=== PATIENT | male | born 1935 | race Caucasian/White ===

== ENCOUNTER → 2016-12-31 | Outpatient (CLI) | payer MEDICARE | END | disposition home or self-care (01) | LOC: CFH 10:27 | PROVIDERS: ATTEND Internal Medicine Cardiovascular Disease | DX: R06.02 Shortness of breath (principal); R07.9 Chest pain, unspecified; I10 Essential (primary) hypertension | CPT/HCPCS: 78452; 93017; 93306; A9502; J2785 ==

== ENCOUNTER 2017-01-21 10:18 | Emergency (ER) | payer MEDICARE ==
[~2017-01-21] VITALS: Ht 185.4 cm; Wt 91.7 kg
[2017-01-21] MEDS ORDERED: WATER PILL (11:13)
[2017-01-21] MEDS ORDERED: AMLO10TA2 PO (11:13)
[2017-01-21 11:24] VITALS: BP 133/74
[2017-01-21] MEDS ORDERED: SODIUM CHLORIDE FLUSH 10ML SYR IVF ONE (11:30)
[2017-01-21 12:01] LABS: ASPARTATE AMINO TRANSFERASE 27 U/L (15-37); BLOOD UREA NITROGEN 34 mg/dL (7-18); C-REACTIVE PROTEIN, QUANT 0.65 mg/dL (0.02-0.49)
[2017-01-21] MEDS ORDERED: GADOBUTROL 10 MMOL/10 ML PFS ONE (12:32)
== END 2017-01-21 14:50 | disposition other institution (70) ==
LOC: ED 13:39 → EDIP 14:00 → UNDOADMIN 14:00 → UNDODISIN 14:17 → ED 14:50
DX: S84.92XA Injury of unspecified nerve at lower leg level, left leg, initial encounter (principal); R33.9 Retention of urine, unspecified; I10 Essential (primary) hypertension; M19.90 Unspecified osteoarthritis, unspecified site; Z88.0 Allergy status to penicillin; X58.XXXA Exposure to other specified factors, initial encounter; Y93.89 Activity, other specified; Y99.8 Other external cause status; Y92.89 Other specified places as the place of occurrence of the external cause
CPT/HCPCS: 36415; 51702; 72158; 80053; 85025; 85651; 86140; 99285; A9585

== ENCOUNTER → 2017-07-15 | Outpatient (CLI) | payer MEDICARE ==
[~2017-07-15] MED LIST: AMLO10TA2 PO; WATER PILL
== END | disposition home or self-care (01) ==
LOC: CFH 14:26
PROVIDERS: ATTEND Family Medicine
DX: R22.42 Localized swelling, mass and lump, left lower limb (principal)

== ENCOUNTER → 2017-09-16 | Outpatient (CLI) | payer MEDICARE | LOC: CFH 09-14 09:41 | PROVIDERS: ATTEND Family Medicine | DX: I71.4 Abdominal aortic aneurysm, without rupture (principal); Z87.891 Personal history of nicotine dependence | CPT/HCPCS: 93978 ==

== ENCOUNTER 2017-09-23 07:46 | Day surgery (SDC) | payer MEDICARE ==
[~2017-09-23] VITALS: Ht 182.9 cm; Wt 87.2 kg
[2017-09-23 08:25] VITALS: BP 144/81
[2017-09-23] MEDS ORDERED: ALBU90AE INH (08:28)
[2017-09-23] MEDS ORDERED: MULT-257 PO (08:30)
[2017-09-23] MEDS ORDERED: VITA200C7 PO (08:30)
[2017-09-23] MEDS ORDERED: CA C1TAB60 PO (08:30)
[2017-09-23 08:49] LABS: BASOPHILS # (AUTO) 0.06 x10^3/uL (0-0.1); BASOPHILS % (AUTO) 1 % (0-1); EOSINOPHILS # (AUTO) 0.31 x10^3/uL (0-0.4); EOSINOPHILS % (AUTO) 6 % (1-7); LYMPHOCYTES # (AUTO) 0.28 x10^3/uL (1-3.4); LYMPHOCYTES % (AUTO) 6 % (22-44); MD NO; MEAN CORPUSCULAR HEMOGLOBIN 27.2 pg (27.5-34.5); MEAN CORPUSCULAR HGB CONC 33.9 g/dL (33.2-36.2); MEAN CORPUSCULAR VOLUME 80.2 fL (81-97); MEAN PLATELET VOLUME 8.4 fL (7.4-10.4); MONOCYTES % (AUTO) 8 % (2-9); NEUTROPHILS # (AUTO) 3.78 x10^3/uL (1.8-6.8); NEUTROPHILS % (AUTO) 78 % (42-75); PLATELET COUNT 170 x10^3/uL (130-400); RED BLOOD COUNT 4.48 x10^6/uL (4.38-5.82); RED CELL DISTRIBUTION WIDTH 16.8 % (9.4-14.8)
[2017-09-23 08:58] LABS: ANION GAP 8 mmol/L (5-15); CALCIUM 9.1 mg/dL (8.5-10.1); CHLORIDE 110 mmol/L (98-107); CREATININE 1.39 mg/dL (0.7-1.3)
[2017-09-23] MEDS ORDERED: LIDOCAINE 2%, 20ML ONE (09:05)
[2017-09-23] MEDS ORDERED: FENTANYL PF 100 MCG/2ML ONE (09:25)
[2017-09-23] MEDS ORDERED: PROTAMINE SULFATE 10 MG/ML, 25ML ONE (09:26)
[2017-09-23] MEDS ORDERED: HEPARIN 1,000 UNITS/ML, 10ML ONE (09:26)
[2017-09-23] MEDS ORDERED: NALOXONE 1 MG/ML, 2ML ONE (09:26)
[2017-09-23] MEDS ORDERED: FLUMAZENIL 0.1 MG/1 ML, 5ML ONE (09:26)
[2017-09-23] MEDS ORDERED: NITROGLYCERIN 5 MG/ML, 10ML ONE (09:26)
[2017-09-23] MEDS ORDERED: MIDAZOLAM 1 MG/ML, 5ML ONE (09:26)
[2017-09-23] MEDS ORDERED: CLOPIDOGREL 75 MG TABLET ONE (10:27)
== END 2017-09-23 15:20 | disposition home or self-care (01) ==
LOC: OUT 07:46
PROVIDERS: ATTEND Surgery Vascular Surgery
DX: I70.212 Atherosclerosis of native arteries of extremities with intermittent claudication, left leg (principal)
CPT/HCPCS: 36415; 37226; 75625; 75630; 75716; 80048; 85025; 99156; 99157; J1644; J2250; J2720; J3010; J3490; C1751; C1769; C1876; C1894; J2310

== ENCOUNTER 2017-11-25 11:03 | Day surgery (SDC) | payer MEDICARE ==
[2017-11-24 11:54] LABS: BASOPHILS # (AUTO) 0.02 x10^3/uL (0-0.1); BASOPHILS % (AUTO) 0 % (0-1); EOSINOPHILS # (AUTO) 0.15 x10^3/uL (0-0.4); EOSINOPHILS % (AUTO) 3 % (1-7); LYMPHOCYTES # (AUTO) 0.35 x10^3/uL (1-3.4); LYMPHOCYTES % (AUTO) 6 % (22-44); MD NO; MEAN CORPUSCULAR HEMOGLOBIN 27.1 pg (27.5-34.5); MEAN CORPUSCULAR HGB CONC 33.4 g/dL (33.2-36.2); MEAN CORPUSCULAR VOLUME 81.2 fL (81-97); MEAN PLATELET VOLUME 8.5 fL (7.4-10.4); MONOCYTES # (AUTO) 0.47 x10^3/uL (0.2-0.8); MONOCYTES % (AUTO) 8 % (2-9); NEUTROPHILS # (AUTO) 4.92 x10^3/uL (1.8-6.8); NEUTROPHILS % (AUTO) 83 % (42-75); PLATELET COUNT 196 x10^3/uL (130-400); RED BLOOD COUNT 4.68 x10^6/uL (4.38-5.82); RED CELL DISTRIBUTION WIDTH 15.5 % (9.4-14.8)
[2017-11-24 12:07] LABS: CHLORIDE 107 mmol/L (98-107)
[2017-11-24 12:17] LABS: ANION GAP 7 mmol/L (5-15); CALCIUM 10.6 mg/dL (8.5-10.1); CREATININE 1.77 mg/dL (0.7-1.3)
[~2017-11-25] VITALS: Ht 185.4 cm; Wt 85.0 kg
[~2017-11-25 11:03] MED LIST changes: +ALBU90AE INH; +AMLO5TAB2 PO; +ATOR40TA PO; +CA C1TAB60 PO; +METO25TA91 PO; +MULT-257 PO; +VITA200C7 PO
[2017-11-25] MEDS ORDERED: SODIUM CHLORIDE 0.9% 1,000 ML IV ONE (11:10)
[2017-11-25] MEDS ORDERED: TICAGRELOR 90 MG TABLET ONE (11:36)
[2017-11-25] MEDS ORDERED: FENTANYL PF 100 MCG/2ML ONE (11:36)
[2017-11-25] MEDS ORDERED: VERAPAMIL 2.5 MG/ML, 2ML ONE (11:36)
[2017-11-25] MEDS ORDERED: HEPARIN 1,000 UNITS/ML, 10ML ONE (11:37)
[2017-11-25] MEDS ORDERED: LIDOCAINE 2%, 20ML ONE (11:37)
[2017-11-25] MEDS ORDERED: MIDAZOLAM 1 MG/ML, 2ML ONE (11:37)
[2017-11-25] MEDS ORDERED: BIVALIRUDIN 250 MG ONE (11:37)
[2017-11-25] MEDS ORDERED: SODIUM CHLORIDE 0.9% 1,000 ML IV SCH (13:09)
== END 2017-11-25 15:43 ==
LOC: CACL 11:03
PROVIDERS: ATTEND Internal Medicine Cardiovascular Disease
DX: I25.10 Atherosclerotic heart disease of native coronary artery without angina pectoris (principal); I10 Essential (primary) hypertension; F17.200 Nicotine dependence, unspecified, uncomplicated; I73.9 Peripheral vascular disease, unspecified; Z88.0 Allergy status to penicillin
CPT/HCPCS: 36415; 80048; 83880; 85025; 92978; 93454; 99156; C1753; C1769; C1887; C1894; J0583; J1644; J3490; Q9967; J2250; J3010

== ENCOUNTER 2017-11-26 09:41 | Emergency (ER) | payer MEDICARE ==
[~2017-11-26] VITALS: Ht 182.9 cm; Wt 85.0 kg
[2017-11-26 09:54] VITALS: BP 128/76
[2017-11-26] MEDS ORDERED: ASPIRIN 81 MG TABLET CHEW PO ONE (10:30)
[2017-11-26 10:57] LABS: BASOPHILS # (AUTO) 0.02 x10^3/uL (0-0.1); BASOPHILS % (AUTO) 0 % (0-1); EOSINOPHILS # (AUTO) 0.21 x10^3/uL (0-0.4); EOSINOPHILS % (AUTO) 4 % (1-7); LYMPHOCYTES % (AUTO) 7 % (22-44); MD NO; MEAN CORPUSCULAR HEMOGLOBIN 26.5 pg (27.5-34.5); MEAN CORPUSCULAR HGB CONC 32.7 g/dL (33.2-36.2); MEAN CORPUSCULAR VOLUME 81.2 fL (81-97); MEAN PLATELET VOLUME 8.9 fL (7.4-10.4); MONOCYTES % (AUTO) 8 % (2-9); NEUTROPHILS # (AUTO) 4.77 x10^3/uL (1.8-6.8); NEUTROPHILS % (AUTO) 81 % (42-75); PLATELET COUNT 192 x10^3/uL (130-400); RED BLOOD COUNT 4.63 x10^6/uL (4.38-5.82); RED CELL DISTRIBUTION WIDTH 15.6 % (9.4-14.8)
[2017-11-26 11:08] LABS: ALBUMIN 3.8 g/dL (3.4-5.0); ANION GAP 8 mmol/L (5-15); CALCIUM 9.4 mg/dL (8.5-10.1); CHLORIDE 109 mmol/L (98-107); CREATININE 1.77 mg/dL (0.7-1.3)
[2017-11-26 11:15] LABS: TROPONIN I 0.109 ng/mL (0.000-0.045)
[2017-11-26] MEDS ORDERED: ASPIRIN 81 MG TABLET CHEW ONE (11:20)
[2017-11-26] MEDS ORDERED: SODIUM CHLORIDE FLUSH 10ML SYR IVF ONE (11:30)
[2017-11-26] MEDS ORDERED: ALBUTEROL SULFATE INH SCH (12:00)
[2017-11-26 12:22] LABS: ALBUMIN 3.8 g/dL (3.4-5.0); BILIRUBIN, DIRECT 0.1 mg/dL (0.1-0.2)
[2017-11-26 12:32] LABS: BILIRUBIN,INDIRECT 0.3 mg/dL (0.0-2.0); BILIRUBIN,TOTAL 0.4 mg/dL (0.2-1.0); THYROID STIMULATING HORMONE 2.81 mIU/L (0.358-3.740); TOTAL PROTEIN 7.6 g/dL (6.4-8.2)
[2017-11-26] MEDS ORDERED: ATORVASTATIN 40 MG TABLET PO SCH (21:00)
[2017-11-26] MEDS ORDERED: METOPROLOL SUCCINATE 25 MG TAB.ER.24H PO SCH (21:00)
[2017-11-26] MEDS ORDERED: AMLODIPINE 5 MG TABLET PO SCH (21:00)
[2017-11-27] MEDS ORDERED: ASPIRIN 325 MG TABLET PO SCH (06:00)
[2017-11-27] MEDS ORDERED: MULTIVITAMIN 1 TABLET PO SCH (09:00)
== END 2017-11-26 13:26 | disposition left against medical advice (07) ==
LOC: ED 11:33 → EDIP 11:34 → UNDOADMIN 11:34 → ED 11:41
DX: R06.00 Dyspnea, unspecified (principal); J90 Pleural effusion, not elsewhere classified; I10 Essential (primary) hypertension; M19.90 Unspecified osteoarthritis, unspecified site
CPT/HCPCS: 36415; 71046; 80048; 80076; 82040; 83880; 84443; 84484; 85025; 93005; 99285

== ENCOUNTER → 2017-12-22 | Outpatient (CLI) | payer MEDICARE | LOC: CFH 12:07 | PROVIDERS: ATTEND Internal Medicine | DX: J90 Pleural effusion, not elsewhere classified (principal); J98.11 Atelectasis | CPT/HCPCS: 71250 ==

== ENCOUNTER 2017-12-23 11:46 | Observation (INO) | payer MEDICARE ==
[~2017-12-23] VITALS: Ht 182.9 cm; Wt 83.1 kg
[2017-12-23] MEDS ORDERED: SODIUM CHLORIDE 0.9% 1,000 ML IV ONE (12:16)
[2017-12-23 12:34] VITALS: BP 123/71
[2017-12-23 12:57] LABS: BASOPHILS # (AUTO) 0.03 x10^3/uL (0-0.1); BASOPHILS % (AUTO) 1 % (0-1); EOSINOPHILS # (AUTO) 0.16 x10^3/uL (0-0.4); EOSINOPHILS % (AUTO) 3 % (1-7); LYMPHOCYTES # (AUTO) 0.37 x10^3/uL (1-3.4); LYMPHOCYTES % (AUTO) 8 % (22-44); MD NO; MEAN CORPUSCULAR HEMOGLOBIN 26.6 pg (27.5-34.5); MEAN CORPUSCULAR HGB CONC 33.1 g/dL (33.2-36.2); MEAN CORPUSCULAR VOLUME 80.4 fL (81-97); MEAN PLATELET VOLUME 9.1 fL (7.4-10.4); MONOCYTES # (AUTO) 0.53 x10^3/uL (0.2-0.8); MONOCYTES % (AUTO) 11 % (2-9); NEUTROPHILS # (AUTO) 3.82 x10^3/uL (1.8-6.8); NEUTROPHILS % (AUTO) 78 % (42-75); PLATELET COUNT 171 x10^3/uL (130-400); RED BLOOD COUNT 4.18 x10^6/uL (4.38-5.82); RED CELL DISTRIBUTION WIDTH 16.1 % (9.4-14.8)
[2017-12-23 13:07] LABS: ANION GAP 11 mmol/L (5-15); CALCIUM 9.6 mg/dL (8.5-10.1); CHLORIDE 108 mmol/L (98-107); CREATININE 1.61 mg/dL (0.7-1.3)
[2017-12-23] MEDS ORDERED: VERAPAMIL 2.5 MG/ML, 2ML ONE (14:16)
[2017-12-23] MEDS ORDERED: TICAGRELOR 90 MG TABLET ONE (14:16)
[2017-12-23] MEDS ORDERED: LIDOCAINE 2%, 20ML ONE (14:16)
[2017-12-23] MEDS ORDERED: HEPARIN 1,000 UNITS/ML, 10ML ONE (14:16)
[2017-12-23] MEDS ORDERED: FENTANYL PF 100 MCG/2ML ONE (14:16)
[2017-12-23] MEDS ORDERED: BIVALIRUDIN 250 MG ONE (14:16)
[2017-12-23] MEDS ORDERED: MIDAZOLAM 1 MG/ML, 5ML ONE (14:16)
[2017-12-23 16:00] VITALS: BP 139/83
[2017-12-23] MEDS ORDERED: ONDANSETRON 2MG/ML, 2ML IVPush PRN (16:00)
[2017-12-23] MEDS ORDERED: BISACODYL 5 MG EC TABLET PO PRN (16:00)
[2017-12-23] MEDS ORDERED: ACETAMINOPHEN 325 MG TABLET PO PRN (16:00)
[2017-12-23] MEDS: SODIUM CHLORIDE 0.9% 1,000 ML IV SCH ×2 (16:15→21:56)
[2017-12-23 18:46] VITALS: BP 131/69
[2017-12-23] MEDS ORDERED: ZOLPIDEM 5MG TABLET PO PRN (21:00)
[2017-12-23] MEDS ORDERED: ATORVASTATIN 40 MG TABLET PO SCH (21:00)
[2017-12-23] MEDS: TICAGRELOR 90 MG TABLET PO SCH (21:56)
[2017-12-23] MEDS: AMLODIPINE 5 MG TABLET PO SCH (21:58)
[2017-12-23] MEDS: METOPROLOL SUCCINATE 25 MG TAB.ER.24H PO SCH (21:58)
[2017-12-24 01:48] VITALS: BP 113/53
[2017-12-24 05:23] LABS: ALBUMIN 3.4 g/dL (3.4-5.0); ANION GAP 8 mmol/L (5-15); CHLORIDE 110 mmol/L (98-107); CREATININE 1.41 mg/dL (0.7-1.3)
[2017-12-24 06:44] VITALS: BP 143/80
[2017-12-24] MEDS: SODIUM CHLORIDE 0.9% 1,000 ML IV SCH (07:07)
[2017-12-24] MEDS: TICAGRELOR 90 MG TABLET PO SCH (07:28)
[2017-12-24] MEDS: AMLODIPINE 5 MG TABLET PO SCH (07:28)
[2017-12-24] MEDS: METOPROLOL SUCCINATE 25 MG TAB.ER.24H PO SCH (07:28)
[2017-12-24] MEDS ORDERED: ASPI-621 PO (08:00)
[2017-12-24] MEDS ORDERED: TICA90TA PO (08:00)
[2017-12-24] MEDS ORDERED: MULTIVITAMIN 1 TABLET PO SCH (09:00)
[2017-12-24] MEDS ORDERED: ASPIRIN 81 MG TABLET EC PO SCH (09:00)
== END 2017-12-24 15:50 | disposition home or self-care (01) ==
LOC: CACL 11:46 → 5SO 15:59 → CACL 15:59 → 5SO 16:01
PROVIDERS: ADMIT Internal Medicine Cardiovascular Disease; ATTEND Internal Medicine Cardiovascular Disease
DX: I25.10 Atherosclerotic heart disease of native coronary artery without angina pectoris (principal); I11.0 Hypertensive heart disease with heart failure; I50.33 Acute on chronic diastolic (congestive) heart failure; I35.0 Nonrheumatic aortic (valve) stenosis; R06.02 Shortness of breath; F17.200 Nicotine dependence, unspecified, uncomplicated
CPT/HCPCS: 36415; 80048; 82040; 85025; 92978; 93454; 99156; 99157; C1725; C1753; C1769; C1874; C1887; C1894; C9600; G0378; J0583; J2250; J3010; J3490; J7030; Q9967; J1644

== ENCOUNTER → 2018-02-08 | Outpatient (CLI) | payer MEDICARE ==
[~2018-02-08] MED LIST changes: +ASPI-621 PO; +FURO20TA3 PO; +LIDOCAINE-MPF 1%, 5ML ONE; +POTA10TA6 PO; +TICA90TA PO
== END ==
LOC: RAD 10:14
PROVIDERS: ATTEND Internal Medicine Hematology & Oncology
DX: J90 Pleural effusion, not elsewhere classified (principal); Z87.39 Personal history of other diseases of the musculoskeletal system and connective tissue; I10 Essential (primary) hypertension; Z98.890 Other specified postprocedural states; Z88.0 Allergy status to penicillin; Z72.89 Other problems related to lifestyle; Z87.891 Personal history of nicotine dependence
CPT/HCPCS: 32555; 82945; 83615; 84157; 88112; 89051

== ENCOUNTER 2018-02-10 06:00 | Day surgery (SDC) | payer MEDICARE ==
[~2018-02-10] VITALS: Ht 182.9 cm; Wt 73.0 kg
[~2018-02-10 06:00] MED LIST changes: -LIDOCAINE-MPF 1%, 5ML ONE
[2018-02-10] MEDS ORDERED: LACTATED RINGERS 1,000 ML IV SCH (06:33)
[2018-02-10] MEDS ORDERED: BUPIVACAINE/PF 0.5% ONE (06:35)
[2018-02-10] MEDS ORDERED: EPINEPHRINE 1 MG/ML, 1ML ONE (06:35)
[2018-02-10 06:36] VITALS: BP 107/65
[2018-02-10] MEDS ORDERED: MIDAZOLAM 1 MG/ML, 2ML ONE ×2 (07:05→07:12)
[2018-02-10] MEDS ORDERED: FENTANYL PF 100 MCG/2ML ONE ×2 (07:05→07:12)
[2018-02-10] MEDS ORDERED: PROPOFOL 50 ML ONE (07:06)
[2018-02-10] MEDS ORDERED: KETAMINE 10 MG/ML, 20ML ONE (07:10)
[2018-02-10] MEDS ORDERED: CEFAZOLIN 1,000 MG ONE (07:24)
[2018-02-10] MEDS ORDERED: PHENYLEPHRINE 10 MG/ML ONE (07:24)
[2018-02-10] MEDS ORDERED: DEXAMETHASONE 4 MG/ML, 1ML ONE (07:24)
[2018-02-10] MEDS ORDERED: PROPOFOL 10 MG/ML, 20ML ONE (07:56)
[2018-02-10] MEDS ORDERED: hydrALAzine 20 MG/ML, 1ML IV PRN (08:00)
[2018-02-10] MEDS ORDERED: METOPROLOL 1 MG/ML, 5ML IV PRN (08:00)
[2018-02-10] MEDS ORDERED: PROMETHAZINE 12.5 MG SUPP PR PRN (08:00)
[2018-02-10] MEDS ORDERED: ONDANSETRON 2MG/ML, 2ML IVPush PRN (08:00)
[2018-02-10] MEDS ORDERED: ALBUTEROL SULFATE 2.5 MG/3 ML NPPB PRN (08:00)
[2018-02-10] MEDS ORDERED: OXYcodone 5 MG/5 ML ORAL.SOL UDC PO PRN (08:00)
[2018-02-10] MEDS ORDERED: FENTANYL PF 100 MCG/2ML IV PRN (08:00)
[2018-02-10] MEDS ORDERED: MORPHINE SULFATE 4 MG/ML, 1ML IVPush PRN (08:00)
[2018-02-10] MEDS ORDERED: ACETAMINOPHEN 325 MG TABLET PO PRN (08:00)
[2018-02-10] MEDS ORDERED: ALBUTEROL/IPRATROPIUM 2.5MG/0.5MG, 3 ML NPPB PRN (08:00)
[2018-02-10] MEDS ORDERED: MIDAZOLAM 1 MG/ML, 2ML IV PRN (08:00)
== END 2018-02-10 11:00 ==
LOC: OUT 06:00
PROVIDERS: ATTEND Surgery
DX: K63.5 Polyp of colon (principal); K57.30 Diverticulosis of large intestine without perforation or abscess without bleeding; I10 Essential (primary) hypertension; J44.9 Chronic obstructive pulmonary disease, unspecified; Z98.890 Other specified postprocedural states; Z72.89 Other problems related to lifestyle; Z87.891 Personal history of nicotine dependence; Z88.0 Allergy status to penicillin
CPT/HCPCS: 38500; 45385; 88305; 88333; 88341; 88342; 93005; J0171; J0690; J1100; J2250; J2370; J2704; J3010; J3490; J7120; G0461

== ENCOUNTER → 2018-02-17 | Outpatient (CLI) | payer MEDICARE | LOC: PETCFH 09:22 | PROVIDERS: ATTEND Internal Medicine Hematology & Oncology | DX: J90 Pleural effusion, not elsewhere classified (principal); I31.3 Pericardial effusion (noninflammatory); R59.1 Generalized enlarged lymph nodes | CPT/HCPCS: 78815; A9552 ==

== ENCOUNTER 2018-03-09 06:40 | Inpatient (IN) | payer MEDICARE ==
[2018-03-09] VITALS (18 sets, daily range): BP systolic 82–105; BP diastolic 41–55
[~2018-03-09] VITALS: Ht 185.4 cm; Wt 82.0 kg
[~2018-03-09 06:40] MED LIST changes: +CLOP75TA52 PO
[2018-03-09] MEDS ORDERED: PANTOPRAZOLE 80 MG in SODIUM CHLORIDE 0.9% 50 ML IVPB ONE (06:45)
[2018-03-09] MEDS ORDERED: PANTOPRAZOLE 80 MG in SODIUM CHLORIDE 0.9% 100 ML IV SCH (06:45)
[2018-03-09] MEDS ORDERED: PLEASE ENTER WEIGHT MC SCH (07:00)
[2018-03-09] MEDS ORDERED: ONDANSETRON 2MG/ML, 2ML IVPush ONE (07:00)
[2018-03-09 07:11] LABS: ALANINE AMINOTRANSFERASE 15 U/L (12-78); ANION GAP 24 mmol/L (5-15); CALCIUM 8.3 mg/dL (8.5-10.1); CHLORIDE 111 mmol/L (98-107)
[2018-03-09 07:12] LABS: MEAN CORPUSCULAR HEMOGLOBIN 28.2 pg (27.5-34.5); MEAN CORPUSCULAR HGB CONC 32.4 g/dL (33.2-36.2); MEAN PLATELET VOLUME 8.8 fL (7.4-10.4); PLATELET COUNT 303 x10^3/uL (130-400); RED BLOOD COUNT 2.02 x10^6/uL (4.38-5.82); RED CELL DISTRIBUTION WIDTH 16.1 % (9.4-14.8)
[2018-03-09 07:13] LABS: ALKALINE PHOSPHATASE 59 U/L (45-117); BILIRUBIN,TOTAL 0.4 mg/dL (0.2-1.0); TOTAL PROTEIN 4.5 g/dL (6.4-8.2)
[2018-03-09 07:20] LABS: INTERNATIONAL NORMALIZED RATIO 1.3 (0.93-1.1); PROTHROMBIN TIME 13.3 Seconds (9.6-11.5)
[2018-03-09] MEDS ORDERED: PROMETHAZINE 25 MG/ML, 1ML IM PRN (07:30)
[2018-03-09 07:49] LABS: MD YES
[2018-03-09 07:54] LABS: LYMPH#(MANUAL) 3.94 x10^3/uL (1-3.4); LYMPHS% (MANUAL) 34 % (22-44); MONOS% (MANUAL) 6 % (2-9); SEG#(MANUAL) 6.96 x10^3/uL (1.8-6.8); SEGS% (MANUAL) 60 % (42-75)
[2018-03-09 07:55] LABS: ANISOCYTOSIS 1+; HYPOCHROMIA 1+; OVALOCYTES 1+
[2018-03-09 07:56] LABS: <PLATELET ESTIMATE> ADEQUATE; <PLT MORPHOLOGY> NORMAL PLT MORPH
[2018-03-09] MEDS: LACTATED RINGERS 1,000 ML IV SCH ×2 (10:04→18:00)
[2018-03-09] MEDS ORDERED: PHENYLEPHRINE 10 MG/ML ONE (14:13)
[2018-03-09] MEDS ORDERED: PROPOFOL 10 MG/ML, 20ML ONE (14:13)
[2018-03-09] MEDS ORDERED: FUROSEMIDE 20 MG/2 ML IV PRN (16:00)
[2018-03-09 16:30] LABS: INTERNATIONAL NORMALIZED RATIO 1.22 (0.93-1.1); PROTHROMBIN TIME 12.5 Seconds (9.6-11.5)
[2018-03-09 16:34] LABS: ANION GAP 12 mmol/L (5-15); CALCIUM 7.6 mg/dL (8.5-10.1); CHLORIDE 115 mmol/L (98-107); CREATININE 1.67 mg/dL (0.7-1.3)
[2018-03-09] MEDS: PANTOPRAZOLE 80 MG in SODIUM CHLORIDE 0.9% 100 ML IV SCH (18:00)
[2018-03-10] MEDS: PANTOPRAZOLE 80 MG in SODIUM CHLORIDE 0.9% 100 ML IV SCH ×3 (02:10→20:40)
[2018-03-10 04:51] LABS: INTERNATIONAL NORMALIZED RATIO 1.21 (0.93-1.1); PROTHROMBIN TIME 12.4 Seconds (9.6-11.5)
[2018-03-10 04:55] LABS: CHLORIDE 113 mmol/L (98-107)
[2018-03-10 05:04] LABS: ALANINE AMINOTRANSFERASE 18 U/L (12-78); ALBUMIN 2.4 g/dL (3.4-5.0); ALKALINE PHOSPHATASE 59 U/L (45-117); ANION GAP 12 mmol/L (5-15); BILIRUBIN,TOTAL 1.1 mg/dL (0.2-1.0); CALCIUM 7.9 mg/dL (8.5-10.1); CREATININE 1.93 mg/dL (0.7-1.3)
[2018-03-10] MEDS: LACTATED RINGERS 1,000 ML IV SCH ×2 (05:42→15:18)
[2018-03-10 05:46] LABS: BASOPHILS # (AUTO) 0.06 x10^3/uL (0-0.1); BASOPHILS % (AUTO) 1 % (0-1); EOSINOPHILS # (AUTO) 0.14 x10^3/uL (0-0.4); EOSINOPHILS % (AUTO) 2 % (1-7); LYMPHOCYTES # (AUTO) 0.68 x10^3/uL (1-3.4); LYMPHOCYTES % (AUTO) 9 % (22-44); MD SCAN; MEAN CORPUSCULAR HEMOGLOBIN 29.2 pg (27.5-34.5); MEAN CORPUSCULAR HGB CONC 34.2 g/dL (33.2-36.2); MEAN CORPUSCULAR VOLUME 85.3 fL (81-97); MEAN PLATELET VOLUME 8.6 fL (7.4-10.4); MONOCYTES # (AUTO) 0.64 x10^3/uL (0.2-0.8); MONOCYTES % (AUTO) 8 % (2-9); NEUTROPHILS # (AUTO) 6.17 x10^3/uL (1.8-6.8); NEUTROPHILS % (AUTO) 80 % (42-75); PLATELET COUNT 152 x10^3/uL (130-400); RED BLOOD COUNT 3.49 x10^6/uL (4.38-5.82); RED CELL DISTRIBUTION WIDTH 16.1 % (9.4-14.8)
[2018-03-10 06:03] VITALS: BP 116/70
[2018-03-10] MEDS ORDERED: POTASSIUM CHLORIDE 10% 40 MEQ/30 ML UDC PO ONE (17:00)
[2018-03-10 20:00] VITALS: BP 105/63
[2018-03-11] MEDS: LACTATED RINGERS 1,000 ML IV SCH ×2 (00:46→10:30)
[2018-03-11 02:00] VITALS: BP 99/66
[2018-03-11 04:39] LABS: ANION GAP 7 mmol/L (5-15); CALCIUM 7.7 mg/dL (8.5-10.1); CHLORIDE 114 mmol/L (98-107)
[2018-03-11 04:42] LABS: CREATININE 2.13 mg/dL (0.7-1.3)
[2018-03-11 04:50] LABS: BASOPHILS # (AUTO) 0.04 x10^3/uL (0-0.1); BASOPHILS % (AUTO) 1 % (0-1); EOSINOPHILS % (AUTO) 5 % (1-7); LYMPHOCYTES # (AUTO) 0.33 x10^3/uL (1-3.4); LYMPHOCYTES % (AUTO) 5 % (22-44); MD NO; MEAN CORPUSCULAR HEMOGLOBIN 29.4 pg (27.5-34.5); MEAN CORPUSCULAR VOLUME 86.4 fL (81-97); MEAN PLATELET VOLUME 8.9 fL (7.4-10.4); MONOCYTES # (AUTO) 0.59 x10^3/uL (0.2-0.8); MONOCYTES % (AUTO) 9 % (2-9); NEUTROPHILS # (AUTO) 5.47 x10^3/uL (1.8-6.8); NEUTROPHILS % (AUTO) 81 % (42-75); PLATELET COUNT 134 x10^3/uL (130-400); RED BLOOD COUNT 3.43 x10^6/uL (4.38-5.82); RED CELL DISTRIBUTION WIDTH 16.7 % (9.4-14.8)
[2018-03-11] MEDS: PANTOPRAZOLE 80 MG in SODIUM CHLORIDE 0.9% 100 ML IV SCH ×2 (07:14→16:49)
[2018-03-11 08:00] VITALS: BP 106/50
[2018-03-11 11:25] VITALS: BP 105/60
[2018-03-11 14:11] VITALS: BP 107/69
[2018-03-11 16:30] VITALS: BP 107/57
[2018-03-11 18:57] VITALS: BP 108/67
[2018-03-12 00:27] VITALS: BP 111/71
[2018-03-12] MEDS: PANTOPRAZOLE 80 MG in SODIUM CHLORIDE 0.9% 100 ML IV SCH (03:19)
[2018-03-12 06:35] VITALS: BP 120/80
[2018-03-12 12:40] VITALS: BP 95/59
[2018-03-12 14:15] LABS: ANION GAP 5 mmol/L (5-15); CALCIUM 8.4 mg/dL (8.5-10.1); CHLORIDE 113 mmol/L (98-107); CREATININE 2.18 mg/dL (0.7-1.3)
[2018-03-12 18:38] VITALS: BP 106/69
[2018-03-13 00:33] VITALS: BP 103/63
[2018-03-13 05:31] LABS: BASOPHILS # (AUTO) 0.02 x10^3/uL (0-0.1); BASOPHILS % (AUTO) 1 % (0-1); EOSINOPHILS # (AUTO) 0.24 x10^3/uL (0-0.4); EOSINOPHILS % (AUTO) 5 % (1-7); LYMPHOCYTES # (AUTO) 0.32 x10^3/uL (1-3.4); LYMPHOCYTES % (AUTO) 7 % (22-44); MD NO; MEAN CORPUSCULAR HGB CONC 34.8 g/dL (33.2-36.2); MEAN CORPUSCULAR VOLUME 86.2 fL (81-97); MEAN PLATELET VOLUME 8.8 fL (7.4-10.4); MONOCYTES # (AUTO) 0.44 x10^3/uL (0.2-0.8); MONOCYTES % (AUTO) 9 % (2-9); NEUTROPHILS # (AUTO) 3.85 x10^3/uL (1.8-6.8); NEUTROPHILS % (AUTO) 79 % (42-75); PLATELET COUNT 131 x10^3/uL (130-400); RED BLOOD COUNT 3.41 x10^6/uL (4.38-5.82); RED CELL DISTRIBUTION WIDTH 16.2 % (9.4-14.8)
[2018-03-13 05:37] LABS: ANION GAP 9 mmol/L (5-15); CALCIUM 8.6 mg/dL (8.5-10.1); CHLORIDE 113 mmol/L (98-107)
[2018-03-13 05:38] LABS: CREATININE 2.14 mg/dL (0.7-1.3)
[2018-03-13 07:00] VITALS: BP 104/60
[2018-03-13] MEDS ORDERED: PANTOPROZOLE 40MG TABLET PO SCH (07:30)
[2018-03-13] MEDS ORDERED: POTASSIUM CHLORIDE 20 MEQ TAB.ER.PRT PO ONE (07:30)
[2018-03-13] MEDS ORDERED: PANT40TA5 PO (10:59)
== END 2018-03-13 11:29 | disposition home health service (06) | DRG 377 ==
LOC: ED 07:41 → EDIP 07:42 → ED 08:12 → CCU 09:02 → 5SO 03-11 10:57
PROVIDERS: ADMIT Hospitalist; ATTEND Hospitalist
PROC: 30233R1 Transfusion of Nonautologous Platelets into Peripheral Vein, Percutaneous Approach (ICD-10-PCS; 2018-03-09)
PROC: 30233K1 Transfusion of Nonautologous Frozen Plasma into Peripheral Vein, Percutaneous Approach (ICD-10-PCS; 2018-03-09)
PROC: 30233N1 Transfusion of Nonautologous Red Blood Cells into Peripheral Vein, Percutaneous Approach (ICD-10-PCS; 2018-03-09)
PROC: 0DJ08ZZ Inspection of Upper Intestinal Tract, Via Natural or Artificial Opening Endoscopic (ICD-10-PCS; principal; 2018-03-09 13:15)
DX: K92.2 Gastrointestinal hemorrhage, unspecified (principal); R57.8 Other shock; N17.0 Acute kidney failure with tubular necrosis; E87.4 Mixed disorder of acid-base balance; C82.90 Follicular lymphoma, unspecified, unspecified site; D62 Acute posthemorrhagic anemia; D72.829 Elevated white blood cell count, unspecified; E78.5 Hyperlipidemia, unspecified; I25.10 Atherosclerotic heart disease of native coronary artery without angina pectoris; N18.9 Chronic kidney disease, unspecified; I12.9 Hypertensive chronic kidney disease with stage 1 through stage 4 chronic kidney disease, or unspecified chronic kidney disease; I65.21 Occlusion and stenosis of right carotid artery; M51.36 Other intervertebral disc degeneration, lumbar region; Z79.82 Long term (current) use of aspirin; Z80.1 Family history of malignant neoplasm of trachea, bronchus and lung; Z80.7 Family history of other malignant neoplasms of lymphoid, hematopoietic and related tissues; Z82.49 Family history of ischemic heart disease and other diseases of the circulatory system; Z95.5 Presence of coronary angioplasty implant and graft; Z87.891 Personal history of nicotine dependence; Z79.02 Long term (current) use of antithrombotics/antiplatelets; Z88.0 Allergy status to penicillin
CPT/HCPCS: 36415; 36430; 36600; 51702; 71045; 80048; 80053; 82803; 83690; 83735; 84100; 85014; 85018; 85025; 85610; 85730; 86850; 86900; 86923; 87081; 93005; 96365; 96366; J2704; C9113; J1940; J2370; J7120; P9016; P9017; P9035

== ENCOUNTER → 2018-04-08 | Outpatient (CLI) | payer MEDICARE ==
[~2018-04-08] MED LIST changes: +PANT40TA5 PO
== END | disposition home or self-care (01) ==
LOC: CFH 09:15
PROVIDERS: ATTEND Internal Medicine Hematology & Oncology
DX: R59.1 Generalized enlarged lymph nodes (principal); J90 Pleural effusion, not elsewhere classified; I31.3 Pericardial effusion (noninflammatory); I25.10 Atherosclerotic heart disease of native coronary artery without angina pectoris
CPT/HCPCS: 71250; 74176; 82565

== ENCOUNTER 2018-04-14 12:39 | Inpatient (IN) | payer MEDICARE ==
[~2018-04-14] VITALS: Ht 182.9 cm; Wt 77.6 kg
[2018-04-14 15:23] VITALS: BP 100/50
[2018-04-14] MEDS ORDERED: LIDOCAINE-MPF 1%, 2ML ONE (15:52)
[2018-04-14] MEDS ORDERED: PLEASE ENTER HEIGHT AND WEIGHT MC SCH (17:00)
[2018-04-14 18:06] LABS: BASOPHILS # (AUTO) 0.03 x10^3/uL (0-0.1); BASOPHILS % (AUTO) 0 % (0-1); EOSINOPHILS # (AUTO) 0.37 x10^3/uL (0-0.4); EOSINOPHILS % (AUTO) 6 % (1-7); LYMPHOCYTES % (AUTO) 10 % (22-44); MD NO; MEAN CORPUSCULAR HEMOGLOBIN 29.6 pg (27.5-34.5); MEAN CORPUSCULAR HGB CONC 33.6 g/dL (33.2-36.2); MEAN CORPUSCULAR VOLUME 88.2 fL (81-97); MEAN PLATELET VOLUME 8.5 fL (7.4-10.4); MONOCYTES # (AUTO) 0.47 x10^3/uL (0.2-0.8); MONOCYTES % (AUTO) 8 % (2-9); NEUTROPHILS # (AUTO) 4.85 x10^3/uL (1.8-6.8); NEUTROPHILS % (AUTO) 77 % (42-75); PLATELET COUNT 195 x10^3/uL (130-400); RED BLOOD COUNT 3.08 x10^6/uL (4.38-5.82); RED CELL DISTRIBUTION WIDTH 17.6 % (9.4-14.8)
[2018-04-14 18:19] LABS: ALANINE AMINOTRANSFERASE 16 U/L (12-78); ALBUMIN 2.9 g/dL (3.4-5.0); ANION GAP 10 mmol/L (5-15); CALCIUM 11.2 mg/dL (8.5-10.1); CHLORIDE 104 mmol/L (98-107); CREATININE 2.33 mg/dL (0.7-1.3)
[2018-04-14 18:21] LABS: ALKALINE PHOSPHATASE 90 U/L (45-117); BILIRUBIN,TOTAL 0.4 mg/dL (0.2-1.0); TOTAL PROTEIN 6.3 g/dL (6.4-8.2)
[2018-04-14] MEDS ORDERED: SODIUM CHLORIDE 0.9% IV ONE ×3 (19:30→20:30)
[2018-04-14] MEDS ORDERED: RITUXIMAB IV ONE ×3 (19:30→20:30)
[2018-04-14] MEDS ORDERED: ALLOPURINOL 300 MG TABLET PO SCH (20:00)
[2018-04-14] MEDS ORDERED: FAMOTIDINE 20 MG TABLET PO ONE (20:00)
[2018-04-14] MEDS ORDERED: ACETAMINOPHEN 325 MG TABLET PO ONE (20:00)
[2018-04-14] MEDS ORDERED: DIPHENHYDRAMINE 50 MG/ML, 1ML IVPush ONE (20:00)
[2018-04-14] MEDS ORDERED: DEXAMETHASONE 10 MG in SODIUM CHLORIDE 0.9% 50 ML IV ONE (20:00)
[2018-04-14 20:45] VITALS: BP 91/48
[2018-04-14 21:08] LABS: RED BLOOD COUNT 3.12 x10^6/uL (4.38-5.82)
[2018-04-14 21:16] LABS: % IRON SATURATION 15 % (20-55); ABSOLUTE RETICS # 0.037 x10^6/uL (0.5-1.5); IRON LEVEL 30 mcg/dL (65-175); RETICULOCYTE COUNT % 1.18 % (0.5-1.5); TOTAL IRON BINDING CAPACITY 205 mcg/dL (250-450)
[2018-04-14 21:30] VITALS: BP 95/52
[2018-04-14 21:39] VITALS: BP 96/50
[2018-04-14 21:41] VITALS: BP 83/53
[2018-04-14 21:43] LABS: FOLATE LEVEL > 20.0 ng/mL (3.1-17.5)
[2018-04-14] MEDS ORDERED: SODIUM CHLORIDE 0.9%, 500ML IVBOLUS ONE (22:00)
[2018-04-15] VITALS: BP 95/53
[2018-04-15 02:20] VITALS: BP 90/52
[2018-04-15 05:13] LABS: CHLORIDE 103 mmol/L (98-107)
[2018-04-15 05:20] LABS: ALANINE AMINOTRANSFERASE 13 U/L (12-78); ALBUMIN 2.7 g/dL (3.4-5.0); ALKALINE PHOSPHATASE 83 U/L (45-117); ANION GAP 7 mmol/L (5-15); BILIRUBIN,TOTAL 0.4 mg/dL (0.2-1.0); CALCIUM 10.9 mg/dL (8.5-10.1); CREATININE 2.26 mg/dL (0.7-1.3); TOTAL PROTEIN 5.9 g/dL (6.4-8.2)
[2018-04-15 05:39] LABS: BASOPHILS # (AUTO) 0.01 x10^3/uL (0-0.1); BASOPHILS % (AUTO) 0 % (0-1); EOSINOPHILS # (AUTO) 0.02 x10^3/uL (0-0.4); EOSINOPHILS % (AUTO) 1 % (1-7); LYMPHOCYTES % (AUTO) 8 % (22-44); MD SCAN; MEAN CORPUSCULAR HEMOGLOBIN 29.8 pg (27.5-34.5); MEAN CORPUSCULAR HGB CONC 34.1 g/dL (33.2-36.2); MEAN CORPUSCULAR VOLUME 87.2 fL (81-97); MEAN PLATELET VOLUME 8.8 fL (7.4-10.4); MONOCYTES # (AUTO) 0.05 x10^3/uL (0.2-0.8); MONOCYTES % (AUTO) 1 % (2-9); NEUTROPHILS % (AUTO) 90 % (42-75); PLATELET COUNT 153 x10^3/uL (130-400); RED BLOOD COUNT 2.84 x10^6/uL (4.38-5.82); RED CELL DISTRIBUTION WIDTH 17.4 % (9.4-14.8)
[2018-04-15 08:51] VITALS: BP 100/55
[2018-04-15] MEDS ORDERED: ONDANSETRON ODT 4 MG PO PRN (09:00)
[2018-04-15] MEDS ORDERED: ALLOPURINOL 300 MG TABLET PO SCH (09:00)
[2018-04-15] MEDS ORDERED: BISACODYL 10 MG SUPP PR PRN (09:00)
[2018-04-15] MEDS ORDERED: PHARMACY MAY ADJ FOR RENAL FX MC PRN (09:00)
[2018-04-15] MEDS ORDERED: ONDANSETRON 2MG/ML, 2ML IVPush PRN (09:00)
[2018-04-15] MEDS: DOCUSATE 100 MG CAPSULE PO SCH ×2 (10:07→19:32)
[2018-04-15 12:39] LABS: MICROSCOPIC INDICATED
[2018-04-15 13:01] LABS: CULTURE INDICATED? YES
[2018-04-15 14:00] VITALS: BP 104/60
[2018-04-15] MEDS: SODIUM CHLORIDE 0.9% 1,000 ML IV SCH (14:39)
[2018-04-15 19:28] VITALS: BP 98/55
[2018-04-15] MEDS ORDERED: SODIUM CHLORIDE 0.9% IV ONE (20:30)
[2018-04-15] MEDS ORDERED: RITUXIMAB IV ONE (20:30)
[2018-04-16] VITALS (7 sets, daily range): BP systolic 94–115; BP diastolic 52–58
[2018-04-16 03:09] LABS: BASOPHILS # (AUTO) 0.03 x10^3/uL (0-0.1); BASOPHILS % (AUTO) 1 % (0-1); EOSINOPHILS # (AUTO) 0.04 x10^3/uL (0-0.4); EOSINOPHILS % (AUTO) 1 % (1-7); LYMPHOCYTES # (AUTO) 0.51 x10^3/uL (1-3.4); LYMPHOCYTES % (AUTO) 11 % (22-44); MD NO; MEAN CORPUSCULAR HEMOGLOBIN 29.9 pg (27.5-34.5); MEAN CORPUSCULAR HGB CONC 34.1 g/dL (33.2-36.2); MEAN CORPUSCULAR VOLUME 87.8 fL (81-97); MONOCYTES # (AUTO) 0.35 x10^3/uL (0.2-0.8); MONOCYTES % (AUTO) 7 % (2-9); NEUTROPHILS % (AUTO) 80 % (42-75); PLATELET COUNT 155 x10^3/uL (130-400); RED BLOOD COUNT 2.65 x10^6/uL (4.38-5.82); RED CELL DISTRIBUTION WIDTH 17.4 % (9.4-14.8)
[2018-04-16 03:16] LABS: ALANINE AMINOTRANSFERASE 15 U/L (12-78); ALBUMIN 2.6 g/dL (3.4-5.0); ANION GAP 9 mmol/L (5-15); CALCIUM 10.5 mg/dL (8.5-10.1); CHLORIDE 108 mmol/L (98-107); CREATININE 2.18 mg/dL (0.7-1.3)
[2018-04-16 03:19] LABS: ALKALINE PHOSPHATASE 76 U/L (45-117); BILIRUBIN,TOTAL 0.3 mg/dL (0.2-1.0); TOTAL PROTEIN 5.6 g/dL (6.4-8.2)
[2018-04-16] MEDS: SODIUM CHLORIDE 0.9% 1,000 ML IV SCH (06:40)
[2018-04-16] MEDS: DOCUSATE 100 MG CAPSULE PO SCH ×2 (07:37→20:25)
[2018-04-16] MEDS: PANTOPROZOLE 40MG TABLET PO SCH (07:37)
[2018-04-16] MEDS ORDERED: DIPHENHYDRAMINE 12.5MG/5ML, 10ML UDC PO ONE (14:30)
[2018-04-16] MEDS ORDERED: ACETAMINOPHEN 325 MG TABLET PO ONE (14:30)
[2018-04-16] MEDS ORDERED: DIPHENHYDRAMINE 50 MG/ML, 1ML ONE (14:53)
[2018-04-16] MEDS: POLYETHYLENE GLYCOL 17 GM PACKET PO PRN (14:55)
[2018-04-16] MEDS: ATORVASTATIN 40 MG TABLET PO SCH (20:25)
[2018-04-17] MEDS: SODIUM CHLORIDE 0.9% 1,000 ML IV SCH ×2 (01:56→22:04)
[2018-04-17 01:58] VITALS: BP 105/54
[2018-04-17 05:44] LABS: BASOPHILS # (AUTO) 0.05 x10^3/uL (0-0.1); BASOPHILS % (AUTO) 1 % (0-1); EOSINOPHILS # (AUTO) 0.27 x10^3/uL (0-0.4); EOSINOPHILS % (AUTO) 5 % (1-7); LYMPHOCYTES # (AUTO) 0.47 x10^3/uL (1-3.4); LYMPHOCYTES % (AUTO) 8 % (22-44); MD NO; MEAN CORPUSCULAR HGB CONC 33.5 g/dL (33.2-36.2); MEAN CORPUSCULAR VOLUME 86.4 fL (81-97); MEAN PLATELET VOLUME 8.1 fL (7.4-10.4); MONOCYTES # (AUTO) 0.48 x10^3/uL (0.2-0.8); MONOCYTES % (AUTO) 8 % (2-9); NEUTROPHILS # (AUTO) 4.76 x10^3/uL (1.8-6.8); NEUTROPHILS % (AUTO) 79 % (42-75); PLATELET COUNT 178 x10^3/uL (130-400); RED BLOOD COUNT 3.09 x10^6/uL (4.38-5.82); RED CELL DISTRIBUTION WIDTH 17.3 % (9.4-14.8)
[2018-04-17 05:50] LABS: ALBUMIN 2.4 g/dL (3.4-5.0); ANION GAP 11 mmol/L (5-15); CALCIUM 10.6 mg/dL (8.5-10.1); CHLORIDE 109 mmol/L (98-107)
[2018-04-17 05:54] LABS: ALANINE AMINOTRANSFERASE 23 U/L (12-78); ALKALINE PHOSPHATASE 74 U/L (45-117); BILIRUBIN,TOTAL 0.4 mg/dL (0.2-1.0); TOTAL PROTEIN 5.2 g/dL (6.4-8.2)
[2018-04-17 07:43] VITALS: BP 101/57
[2018-04-17] MEDS: DOCUSATE 100 MG CAPSULE PO SCH ×2 (07:49→20:53)
[2018-04-17] MEDS: PANTOPROZOLE 40MG TABLET PO SCH (07:49)
[2018-04-17 12:47] LABS: OCCULT BLOOD NEGATIVE (NEGATIVE)
[2018-04-17 14:26] VITALS: BP 96/55
[2018-04-17] MEDS: ATORVASTATIN 40 MG TABLET PO SCH (20:56)
[2018-04-17 21:16] VITALS: BP 104/53
[2018-04-18 02:36] VITALS: BP 103/57
[2018-04-18 04:17] LABS: BASOPHILS # (AUTO) 0.03 x10^3/uL (0-0.1); BASOPHILS % (AUTO) 0 % (0-1); EOSINOPHILS # (AUTO) 0.27 x10^3/uL (0-0.4); EOSINOPHILS % (AUTO) 4 % (1-7); LYMPHOCYTES # (AUTO) 0.39 x10^3/uL (1-3.4); LYMPHOCYTES % (AUTO) 6 % (22-44); MD NO; MEAN CORPUSCULAR HEMOGLOBIN 28.8 pg (27.5-34.5); MEAN CORPUSCULAR HGB CONC 33.2 g/dL (33.2-36.2); MEAN CORPUSCULAR VOLUME 86.9 fL (81-97); MEAN PLATELET VOLUME 7.9 fL (7.4-10.4); MONOCYTES # (AUTO) 0.56 x10^3/uL (0.2-0.8); MONOCYTES % (AUTO) 8 % (2-9); NEUTROPHILS # (AUTO) 5.54 x10^3/uL (1.8-6.8); NEUTROPHILS % (AUTO) 82 % (42-75); PLATELET COUNT 169 x10^3/uL (130-400); RED BLOOD COUNT 3.21 x10^6/uL (4.38-5.82); RED CELL DISTRIBUTION WIDTH 17.5 % (9.4-14.8)
[2018-04-18 04:31] LABS: ALANINE AMINOTRANSFERASE 17 U/L (12-78); ALBUMIN 2.3 g/dL (3.4-5.0); ANION GAP 8 mmol/L (5-15); CALCIUM 10.2 mg/dL (8.5-10.1); CHLORIDE 109 mmol/L (98-107)
[2018-04-18 04:33] LABS: ALKALINE PHOSPHATASE 66 U/L (45-117); BILIRUBIN,TOTAL 0.4 mg/dL (0.2-1.0)
[2018-04-18 08:05] VITALS: BP 103/59
[2018-04-18] MEDS: PANTOPROZOLE 40MG TABLET PO SCH (08:52)
[2018-04-18] MEDS: DOCUSATE 100 MG CAPSULE PO SCH ×2 (08:54→19:49)
[2018-04-18 15:18] VITALS: BP 103/95
[2018-04-18] MEDS: SODIUM CHLORIDE 0.9% 1,000 ML IV SCH (17:07)
[2018-04-18 19:48] VITALS: BP 104/55
[2018-04-18] MEDS: ATORVASTATIN 40 MG TABLET PO SCH (19:53)
[2018-04-19] VITALS (8 sets, daily range): BP systolic 103–125; BP diastolic 59–75
[2018-04-19 04:59] LABS: ALBUMIN 2.2 g/dL (3.4-5.0); ANION GAP 6 mmol/L (5-15); CALCIUM 10.2 mg/dL (8.5-10.1); CHLORIDE 109 mmol/L (98-107)
[2018-04-19 05:02] LABS: ALANINE AMINOTRANSFERASE 20 U/L (12-78); ALKALINE PHOSPHATASE 63 U/L (45-117); BILIRUBIN,TOTAL 0.5 mg/dL (0.2-1.0); CREATININE 1.75 mg/dL (0.7-1.3)
[2018-04-19 05:05] LABS: BASOPHILS # (AUTO) 0.02 x10^3/uL (0-0.1); BASOPHILS % (AUTO) 0 % (0-1); EOSINOPHILS # (AUTO) 0.32 x10^3/uL (0-0.4); EOSINOPHILS % (AUTO) 7 % (1-7); LYMPHOCYTES % (AUTO) 6 % (22-44); MD NO; MEAN CORPUSCULAR HEMOGLOBIN 29.3 pg (27.5-34.5); MEAN CORPUSCULAR HGB CONC 33.7 g/dL (33.2-36.2); MEAN PLATELET VOLUME 8.2 fL (7.4-10.4); MONOCYTES # (AUTO) 0.43 x10^3/uL (0.2-0.8); MONOCYTES % (AUTO) 9 % (2-9); NEUTROPHILS # (AUTO) 3.92 x10^3/uL (1.8-6.8); NEUTROPHILS % (AUTO) 79 % (42-75); PLATELET COUNT 140 x10^3/uL (130-400); RED BLOOD COUNT 2.95 x10^6/uL (4.38-5.82); RED CELL DISTRIBUTION WIDTH 17.3 % (9.4-14.8)
[2018-04-19] MEDS: PANTOPROZOLE 40MG TABLET PO SCH (08:16)
[2018-04-19] MEDS: DOCUSATE 100 MG CAPSULE PO SCH ×2 (08:16→21:00)
[2018-04-19] MEDS: predniSONE 50MG TABLET PO SCH (10:06)
[2018-04-19] MEDS: ALLOPURINOL 100 MG TABLET PO SCH (10:06)
[2018-04-19] MEDS ORDERED: DIPHENHYDRAMINE 50 MG/ML, 1ML IVPush ONE (10:30)
[2018-04-19] MEDS ORDERED: ACETAMINOPHEN 325 MG TABLET PO ONE (10:30)
[2018-04-19] MEDS ORDERED: FAMOTIDINE 20 MG/2 ML IVPush ONE (10:30)
[2018-04-19] MEDS ORDERED: ONDANSETRON 16 MG, DEXAMETHASONE 12 MG in SODIUM CHLORIDE 0.9% 50 ML IVPB ONE (10:30)
[2018-04-19] MEDS ORDERED: DEXAMETHASONE 12 MG in SODIUM CHLORIDE 0.9% 50 ML IV ONE (10:30)
[2018-04-19] MEDS ORDERED: RITUXIMAB IV ONE (11:00)
[2018-04-19] MEDS ORDERED: SODIUM CHLORIDE 0.9% IV ONE ×2 (11:00→23:00)
[2018-04-19] MEDS: ATORVASTATIN 40 MG TABLET PO SCH (21:29)
[2018-04-19] MEDS ORDERED: ONDANSETRON 16 MG in SODIUM CHLORIDE 0.9% 50 ML IVPB ONE (22:30)
[2018-04-19] MEDS ORDERED: CYCLOPHOSPHAMIDE IV ONE (23:00)
[2018-04-19] MEDS ORDERED: FUROSEMIDE 20 MG/2 ML IV ONE (23:30)
[2018-04-20 01:50] VITALS: BP 107/50
[2018-04-20 05:49] LABS: BASOPHILS % (AUTO) 0 % (0-1); EOSINOPHILS % (AUTO) 0 % (1-7); LYMPHOCYTES # (AUTO) 0.36 x10^3/uL (1-3.4); LYMPHOCYTES % (AUTO) 7 % (22-44); MD NO; MEAN CORPUSCULAR HEMOGLOBIN 29.9 pg (27.5-34.5); MEAN CORPUSCULAR HGB CONC 33.9 g/dL (33.2-36.2); MEAN CORPUSCULAR VOLUME 88.1 fL (81-97); MEAN PLATELET VOLUME 8.4 fL (7.4-10.4); MONOCYTES # (AUTO) 0.21 x10^3/uL (0.2-0.8); MONOCYTES % (AUTO) 4 % (2-9); NEUTROPHILS # (AUTO) 4.46 x10^3/uL (1.8-6.8); NEUTROPHILS % (AUTO) 89 % (42-75); PLATELET COUNT 190 x10^3/uL (130-400); RED BLOOD COUNT 3.19 x10^6/uL (4.38-5.82); RED CELL DISTRIBUTION WIDTH 17.6 % (9.4-14.8)
[2018-04-20 05:58] LABS: ALANINE AMINOTRANSFERASE 20 U/L (12-78); ALBUMIN 2.6 g/dL (3.4-5.0); ANION GAP 10 mmol/L (5-15); CALCIUM 10.8 mg/dL (8.5-10.1); CHLORIDE 108 mmol/L (98-107); CREATININE 1.79 mg/dL (0.7-1.3)
[2018-04-20 06:00] LABS: ALKALINE PHOSPHATASE 73 U/L (45-117); BILIRUBIN,TOTAL 0.3 mg/dL (0.2-1.0); TOTAL PROTEIN 5.8 g/dL (6.4-8.2)
[2018-04-20] MEDS: SODIUM CHLORIDE 0.9% 1,000 ML IV SCH (06:20)
[2018-04-20 07:06] VITALS: BP 132/96
[2018-04-20 07:13] VITALS: BP 110/60
[2018-04-20] MEDS: DOCUSATE 100 MG CAPSULE PO SCH ×2 (07:38→21:15)
[2018-04-20] MEDS: ALLOPURINOL 100 MG TABLET PO SCH (07:38)
[2018-04-20] MEDS: predniSONE 50MG TABLET PO SCH (07:38)
[2018-04-20] MEDS: PANTOPROZOLE 40MG TABLET PO SCH (07:38)
[2018-04-20] MEDS ORDERED: ONDANSETRON 16 MG, DEXAMETHASONE 12 MG in SODIUM CHLORIDE 0.9% 50 ML IVPB ONE (10:15)
[2018-04-20] MEDS ORDERED: ONDANSETRON 16 MG in SODIUM CHLORIDE 0.9% 50 ML IVPB ONE (10:15)
[2018-04-20] MEDS ORDERED: CYCLOPHOSPHAMIDE IV ONE (11:00)
[2018-04-20] MEDS ORDERED: SODIUM CHLORIDE 0.9% IV ONE (11:00)
[2018-04-20 13:37] VITALS: BP 124/69
[2018-04-20 20:11] VITALS: BP 108/57
[2018-04-20] MEDS: ATORVASTATIN 40 MG TABLET PO SCH (21:15)
[2018-04-21 02:14] VITALS: BP 120/62
[2018-04-21 05:37] LABS: BASOPHILS % (AUTO) 0 % (0-1); EOSINOPHILS % (AUTO) 0 % (1-7); LYMPHOCYTES # (AUTO) 0.41 x10^3/uL (1-3.4); LYMPHOCYTES % (AUTO) 6 % (22-44); MD NO; MEAN CORPUSCULAR HEMOGLOBIN 29.7 pg (27.5-34.5); MEAN CORPUSCULAR HGB CONC 33.9 g/dL (33.2-36.2); MEAN CORPUSCULAR VOLUME 87.6 fL (81-97); MEAN PLATELET VOLUME 8.9 fL (7.4-10.4); MONOCYTES # (AUTO) 0.37 x10^3/uL (0.2-0.8); MONOCYTES % (AUTO) 6 % (2-9); NEUTROPHILS # (AUTO) 5.62 x10^3/uL (1.8-6.8); NEUTROPHILS % (AUTO) 88 % (42-75); PLATELET COUNT 157 x10^3/uL (130-400); RED BLOOD COUNT 2.87 x10^6/uL (4.38-5.82); RED CELL DISTRIBUTION WIDTH 18.1 % (9.4-14.8)
[2018-04-21 07:06] VITALS: BP 107/58
[2018-04-21] MEDS: ALLOPURINOL 100 MG TABLET PO SCH (07:08)
[2018-04-21] MEDS: DOCUSATE 100 MG CAPSULE PO SCH ×2 (07:08→21:23)
[2018-04-21] MEDS: PANTOPROZOLE 40MG TABLET PO SCH (07:08)
[2018-04-21] MEDS: predniSONE 50MG TABLET PO SCH (07:08)
[2018-04-21 07:51] LABS: ALANINE AMINOTRANSFERASE 27 U/L (12-78); ALBUMIN 2.5 g/dL (3.4-5.0); ANION GAP 8 mmol/L (5-15); CALCIUM 9.9 mg/dL (8.5-10.1); CHLORIDE 107 mmol/L (98-107); CREATININE 1.62 mg/dL (0.7-1.3)
[2018-04-21 07:53] LABS: ALKALINE PHOSPHATASE 64 U/L (45-117); BILIRUBIN,TOTAL 0.2 mg/dL (0.2-1.0); TOTAL PROTEIN 5.4 g/dL (6.4-8.2)
[2018-04-21] MEDS: POLYETHYLENE GLYCOL 17 GM PACKET PO PRN (13:22)
[2018-04-21 13:23] VITALS: BP 115/65
[2018-04-21 19:28] VITALS: BP 123/65
[2018-04-21] MEDS: ATORVASTATIN 40 MG TABLET PO SCH (21:23)
[2018-04-22 03:35] VITALS: BP 119/64
[2018-04-22 04:52] LABS: BASOPHILS # (AUTO) 0.01 x10^3/uL (0-0.1); BASOPHILS % (AUTO) 0 % (0-1); EOSINOPHILS % (AUTO) 0 % (1-7); LYMPHOCYTES # (AUTO) 0.29 x10^3/uL (1-3.4); LYMPHOCYTES % (AUTO) 5 % (22-44); MD NO; MEAN CORPUSCULAR HEMOGLOBIN 29.5 pg (27.5-34.5); MEAN CORPUSCULAR HGB CONC 33.7 g/dL (33.2-36.2); MEAN CORPUSCULAR VOLUME 87.4 fL (81-97); MEAN PLATELET VOLUME 8.6 fL (7.4-10.4); MONOCYTES # (AUTO) 0.41 x10^3/uL (0.2-0.8); MONOCYTES % (AUTO) 6 % (2-9); NEUTROPHILS # (AUTO) 5.65 x10^3/uL (1.8-6.8); NEUTROPHILS % (AUTO) 89 % (42-75); PLATELET COUNT 137 x10^3/uL (130-400); RED BLOOD COUNT 2.93 x10^6/uL (4.38-5.82); RED CELL DISTRIBUTION WIDTH 17.8 % (9.4-14.8)
[2018-04-22 05:03] LABS: ALANINE AMINOTRANSFERASE 25 U/L (12-78); ALBUMIN 2.3 g/dL (3.4-5.0); ANION GAP 10 mmol/L (5-15); CALCIUM 9.5 mg/dL (8.5-10.1); CHLORIDE 107 mmol/L (98-107); CREATININE 1.47 mg/dL (0.7-1.3)
[2018-04-22 05:06] LABS: ALKALINE PHOSPHATASE 60 U/L (45-117); BILIRUBIN,TOTAL 0.2 mg/dL (0.2-1.0); TOTAL PROTEIN 5.1 g/dL (6.4-8.2)
[2018-04-22 07:23] VITALS: BP_SYST 114; BP_SYST 14; BP_DIAS 69
[2018-04-22] MEDS: DOCUSATE 100 MG CAPSULE PO SCH (09:01)
[2018-04-22] MEDS: PANTOPROZOLE 40MG TABLET PO SCH (09:01)
[2018-04-22] MEDS: ALLOPURINOL 100 MG TABLET PO SCH (09:01)
[2018-04-22] MEDS: predniSONE 50MG TABLET PO SCH (09:02)
[2018-04-22] MEDS ORDERED: DOCU-131 PO (11:33)
[2018-04-22] MEDS ORDERED: PRED50TA PO (11:33)
[2018-04-22] MEDS ORDERED: ALLO100T30 PO (11:33)
== END 2018-04-22 13:00 | disposition home or self-care (01) | DRG 840 ==
LOC: 3NW 14:53
PROVIDERS: ADMIT Internal Medicine Hematology & Oncology; ATTEND Internal Medicine Hematology & Oncology
PROC: 02HV33Z Insertion of Infusion Device into Superior Vena Cava, Percutaneous Approach (ICD-10-PCS; principal; 2018-04-14)
PROC: B5181ZA Fluoroscopy of Superior Vena Cava using Low Osmolar Contrast, Guidance (ICD-10-PCS; 2018-04-14)
PROC: 30233N1 Transfusion of Nonautologous Red Blood Cells into Peripheral Vein, Percutaneous Approach (ICD-10-PCS; 2018-04-16)
DX: C82.30 Follicular lymphoma grade IIIa, unspecified site (principal); E43 Unspecified severe protein-calorie malnutrition; N17.9 Acute kidney failure, unspecified; I13.0 Hypertensive heart and chronic kidney disease with heart failure and stage 1 through stage 4 chronic kidney disease, or unspecified chronic kidney disease; Z88.0 Allergy status to penicillin; D63.8 Anemia in other chronic diseases classified elsewhere; E83.52 Hypercalcemia; I25.10 Atherosclerotic heart disease of native coronary artery without angina pectoris; I35.0 Nonrheumatic aortic (valve) stenosis; I50.9 Heart failure, unspecified; I73.9 Peripheral vascular disease, unspecified; K59.09 Other constipation; N18.3 Chronic kidney disease, stage 3 (moderate); Z80.1 Family history of malignant neoplasm of trachea, bronchus and lung; Z80.7 Family history of other malignant neoplasms of lymphoid, hematopoietic and related tissues; Z82.49 Family history of ischemic heart disease and other diseases of the circulatory system; Z87.891 Personal history of nicotine dependence; Z95.5 Presence of coronary angioplasty implant and graft; Z96.659 Presence of unspecified artificial knee joint; Z98.1 Arthrodesis status; Z99.81 Dependence on supplemental oxygen; Z51.11 Encounter for antineoplastic chemotherapy; Z68.23 Body mass index [BMI] 23.0-23.9, adult
CPT/HCPCS: 36415; 36569; 76770; 76937; 77001; 80053; 81001; 82272; 82607; 82668; 82728; 82746; 83540; 83550; 83615; 83735; 84100; 84443; 84550; 85025; 85045; 86850; 86900; 86923; 87086; J1100; J2405; J3490; J9070; Q0162; C1751; J1200; J1940; J7030; J7040; J7050; J7512; J9310; J9370; P9040; S0028

== ENCOUNTER → 2018-04-27 | Outpatient (CLI) | payer MEDICARE ==
[~2018-04-27] MED LIST changes: +ALLO100T30 PO; +DOCU-131 PO; +PRED50TA PO
== END | disposition home or self-care (01) ==
LOC: CFH 12:23
PROVIDERS: ATTEND Internal Medicine Hematology & Oncology
DX: J90 Pleural effusion, not elsewhere classified (principal); C82.30 Follicular lymphoma grade IIIa, unspecified site; I11.0 Hypertensive heart disease with heart failure; I50.33 Acute on chronic diastolic (congestive) heart failure
CPT/HCPCS: 71046

== ENCOUNTER 2018-06-22 08:12 | Inpatient (IN) | payer MEDICARE ==
[~2018-06-22] VITALS: Ht 182.9 cm; Wt 76.8 kg
[~2018-06-22 08:12] MED LIST changes: -AMLO10TA2 PO; +AMLO10TA6 PO; -AMLO5TAB2 PO; +AMLO5TAB7 PO
[2018-06-22] MEDS ORDERED: ALBUTEROL SULFATE 2.5 MG/3 ML ONE (08:40)
[2018-06-22 08:58] LABS: ALBUMIN 3.3 g/dL (3.4-5.0); ANION GAP 11 mmol/L (5-15); CALCIUM 9.2 mg/dL (8.5-10.1); CHLORIDE 106 mmol/L (98-107); CREATININE 1.36 mg/dL (0.7-1.3)
[2018-06-22] MEDS ORDERED: ALBUTEROL SULFATE 2.5 MG/3 ML NPPB PRN (09:00)
[2018-06-22 09:01] LABS: TROPONIN I 0.032 ng/mL (0.000-0.045)
[2018-06-22 09:12] LABS: MEAN CORPUSCULAR HEMOGLOBIN 29.5 pg (27.5-34.5); MEAN CORPUSCULAR HGB CONC 33.1 g/dL (33.2-36.2); MEAN CORPUSCULAR VOLUME 88.9 fL (81-97); MEAN PLATELET VOLUME 8.8 fL (7.4-10.4); PLATELET COUNT 84 x10^3/uL (130-400); RED BLOOD COUNT 3.05 x10^6/uL (4.38-5.82)
[2018-06-22 09:13] LABS: MD YES
[2018-06-22 09:42] LABS: ANISOCYTOSIS 1+; EOS#(MANUAL) 0.01 x10^3/uL (0.0-0.4); EOS% (MANUAL) 1 % (1-7); LYMPH#(MANUAL) 0.54 x10^3/uL (1-3.4); LYMPHS% (MANUAL) 67 % (22-44); MONOS% (MANUAL) 12 % (2-9); SEG#(MANUAL) 0.16 x10^3/uL (1.8-6.8); SEGS% (MANUAL) 20 % (42-75)
[2018-06-22 09:43] LABS: <PLATELET ESTIMATE> DECREASED; <PLT MORPHOLOGY> NORMAL PLT MORPH; OVALOCYTES 1+
[2018-06-22] MEDS ORDERED: FURO40TA6 PO (10:40)
[2018-06-22] MEDS ORDERED: METO25TA35 PO (10:43)
[2018-06-22] MEDS ORDERED: POTA10TA12 PO (10:43)
[2018-06-22] MEDS ORDERED: FURO-93 PO (10:43)
[2018-06-22] MEDS ORDERED: ONDANSETRON 2MG/ML, 2ML IVPush PRN (11:30)
[2018-06-22] MEDS ORDERED: FUROSEMIDE 20 MG/2 ML IV ONE (11:30)
[2018-06-22] MEDS ORDERED: LABETALOL 5MG/ML, 20ML IVPush PRN (11:30)
[2018-06-22] MEDS ORDERED: ACETAMINOPHEN 325 MG TABLET PO PRN (11:30)
[2018-06-22] MEDS ORDERED: ONDANSETRON ODT 4 MG PO PRN (11:30)
[2018-06-22] MEDS ORDERED: VANCOMYCIN PER PHARMACY MC PRN (11:30)
[2018-06-22 11:59] VITALS: BP 143/66
[2018-06-22] MEDS: HEPARIN 5,000 UNITS/ML, 1ML SQ SCH ×2 (12:00→21:45)
[2018-06-22] MEDS ORDERED: PHARMACOKINETIC CONSULTATION MC ONE (12:30)
[2018-06-22] MEDS ORDERED: PHARMACOKINETIC MONITORING MC PRN (12:30)
[2018-06-22] MEDS: CEFEPIME 2 GM in DEXTROSE 5% 100 ML IV SCH ×2 (14:38→21:51)
[2018-06-22] MEDS: GUAIFENESIN ER 600 MG TABLET PO SCH ×2 (14:38→21:45)
[2018-06-22] MEDS: VANCOMYCIN 1,400 MG in SODIUM CHLORIDE 0.9% 250 ML IV SCH (15:19)
[2018-06-22 19:09] VITALS: BP 103/63
[2018-06-22] MEDS: METOPROLOL TARTRATE 25 MG TABLET PO SCH (21:00)
[2018-06-22 21:41] VITALS: BP 89/51
[2018-06-22 21:43] VITALS: BP 93/55
[2018-06-23] VITALS (7 sets, daily range): BP systolic 92–105; BP diastolic 52–65
[2018-06-23] MEDS: HEPARIN 5,000 UNITS/ML, 1ML SQ SCH ×3 (04:00→20:00)
[2018-06-23 05:30] LABS: CHLORIDE 104 mmol/L (98-107)
[2018-06-23 05:36] LABS: ANION GAP 8 mmol/L (5-15); CALCIUM 8.9 mg/dL (8.5-10.1); CREATININE 1.51 mg/dL (0.7-1.3)
[2018-06-23 05:40] LABS: MEAN CORPUSCULAR HGB CONC 34.2 g/dL (33.2-36.2); MEAN CORPUSCULAR VOLUME 87.7 fL (81-97); MEAN PLATELET VOLUME 10.1 fL (7.4-10.4); PLATELET COUNT 98 x10^3/uL (130-400); RED BLOOD COUNT 2.72 x10^6/uL (4.38-5.82); RED CELL DISTRIBUTION WIDTH 16.4 % (9.4-14.8)
[2018-06-23] MEDS: CEFEPIME 2 GM in DEXTROSE 5% 100 ML IV SCH ×2 (05:44→14:55)
[2018-06-23 06:18] LABS: MD YES
[2018-06-23] MEDS ORDERED: PHARMACY MAY ADJ FOR RENAL FX MC PRN (09:00)
[2018-06-23] MEDS: METOPROLOL TARTRATE 25 MG TABLET PO SCH ×2 (09:00→20:50)
[2018-06-23 09:37] LABS: BAND#(MANUAL) 0.09 x10^3/uL; BANDS%(MANUAL) 10 % (0-7); EOS#(MANUAL) 0.04 x10^3/uL (0.0-0.4); EOS% (MANUAL) 4 % (1-7); LYMPH#(MANUAL) 0.34 x10^3/uL (1-3.4); LYMPHS% (MANUAL) 38 % (22-44); METAMYELOCYTES# (MANUAL) 0.02 x10^3/uL (0-0); METAMYELOCYTES% (MANUAL) 2 % (0-1); MONOS#(MANUAL) 0.13 x10^3/uL (0.3-2.7); MONOS% (MANUAL) 14 % (2-9); SEG#(MANUAL) 0.29 x10^3/uL (1.8-6.8); SEGS% (MANUAL) 32 % (42-75)
[2018-06-23 09:38] LABS: <PLATELET ESTIMATE> DECREASED; <PLT MORPHOLOGY> NORMAL PLT MORPH; ANISOCYTOSIS 1+; OVALOCYTES 1+
[2018-06-23] MEDS: PANTOPROZOLE 40MG TABLET PO SCH (09:51)
[2018-06-23] MEDS: GUAIFENESIN ER 600 MG TABLET PO SCH ×2 (09:51→20:51)
[2018-06-23] MEDS ORDERED: SODIUM CHLORIDE 0.9% 500 ML IV SCH (16:30)
[2018-06-23] MEDS: VANCOMYCIN 1,400 MG in SODIUM CHLORIDE 0.9% 250 ML IV SCH (17:28)
[2018-06-24] MEDS: HEPARIN 5,000 UNITS/ML, 1ML SQ SCH ×4 (00:27→19:32)
[2018-06-24 01:07] VITALS: BP 103/67
[2018-06-24] MEDS ORDERED: CEFEPIME 2 GM in DEXTROSE 5% 100 ML IV SCH (02:00)
[2018-06-24 04:40] LABS: MEAN CORPUSCULAR HEMOGLOBIN 30.3 pg (27.5-34.5); MEAN CORPUSCULAR HGB CONC 34.6 g/dL (33.2-36.2); MEAN CORPUSCULAR VOLUME 87.6 fL (81-97); RED BLOOD COUNT 2.58 x10^6/uL (4.38-5.82); RED CELL DISTRIBUTION WIDTH 15.9 % (9.4-14.8)
[2018-06-24 04:46] LABS: ANION GAP 9 mmol/L (5-15); CALCIUM 8.4 mg/dL (8.5-10.1); CHLORIDE 105 mmol/L (98-107); CREATININE 1.32 mg/dL (0.7-1.3)
[2018-06-24 05:16] LABS: MD YES; MEAN PLATELET VOLUME 9.7 fL (7.4-10.4); PLATELET COUNT 84 x10^3/uL (130-400)
[2018-06-24 05:22] LABS: BAND#(MANUAL) 0.26 x10^3/uL; BANDS%(MANUAL) 10 % (0-7); EOS#(MANUAL) 0.16 x10^3/uL (0.0-0.4); EOS% (MANUAL) 6 % (1-7); LYMPH#(MANUAL) 0.65 x10^3/uL (1-3.4); LYMPHS% (MANUAL) 25 % (22-44); METAMYELOCYTES# (MANUAL) 0.08 x10^3/uL (0-0); METAMYELOCYTES% (MANUAL) 3 % (0-1); MONOS#(MANUAL) 0.18 x10^3/uL (0.3-2.7); MONOS% (MANUAL) 7 % (2-9); SEG#(MANUAL) 1.27 x10^3/uL (1.8-6.8); SEGS% (MANUAL) 49 % (42-75)
[2018-06-24 05:23] LABS: ANISOCYTOSIS 1+; OVALOCYTES 1+
[2018-06-24 05:24] LABS: <PLATELET ESTIMATE> DECREASED; <PLT MORPHOLOGY> NORMAL PLT MORPH; TOXIC GRAN 1+
[2018-06-24 06:41] VITALS: BP 96/53
[2018-06-24] MEDS: METOPROLOL TARTRATE 25 MG TABLET PO SCH ×2 (08:37→21:18)
[2018-06-24] MEDS: GUAIFENESIN ER 600 MG TABLET PO SCH ×2 (08:38→21:20)
[2018-06-24] MEDS: PANTOPROZOLE 40MG TABLET PO SCH (08:38)
[2018-06-24] MEDS: LEVOFLOXACIN 750 MG TABLET PO SCH (12:35)
[2018-06-24 12:36] VITALS: BP 103/58
[2018-06-24 12:37] VITALS: BP 103/58
[2018-06-24 14:46] VITALS: BP 135/79
[2018-06-24 18:30] VITALS: BP 95/60
[2018-06-25 00:23] VITALS: BP 104/64
[2018-06-25 08:00] VITALS: BP 101/62
[2018-06-25] MEDS: HEPARIN 5,000 UNITS/ML, 1ML SQ SCH (08:56)
[2018-06-25] MEDS: METOPROLOL TARTRATE 25 MG TABLET PO SCH (09:00)
[2018-06-25] MEDS: PANTOPROZOLE 40MG TABLET PO SCH (09:07)
[2018-06-25] MEDS: GUAIFENESIN ER 600 MG TABLET PO SCH (09:07)
[2018-06-25] MEDS: LEVOFLOXACIN 750 MG TABLET PO SCH (09:07)
[2018-06-25] MEDS ORDERED: FURO-93 PO (10:21)
[2018-06-25] MEDS ORDERED: LEVO750T26 PO (10:21)
[2018-06-25 14:30] VITALS: BP 101/57
== END 2018-06-25 18:08 | disposition home or self-care (01) | DRG 871 ==
LOC: ED 09:54 → EDIP 09:55 → ED 10:07 → 3NW 11:45 → 4EST 06-24 17:05
PROVIDERS: ADMIT Internal Medicine; ATTEND Internal Medicine
DX: A41.9 Sepsis, unspecified organism (principal); J18.9 Pneumonia, unspecified organism; J96.00 Acute respiratory failure, unspecified whether with hypoxia or hypercapnia; C82.90 Follicular lymphoma, unspecified, unspecified site; I13.0 Hypertensive heart and chronic kidney disease with heart failure and stage 1 through stage 4 chronic kidney disease, or unspecified chronic kidney disease; I50.30 Unspecified diastolic (congestive) heart failure; K92.2 Gastrointestinal hemorrhage, unspecified; N17.9 Acute kidney failure, unspecified; Z87.891 Personal history of nicotine dependence; D70.1 Agranulocytosis secondary to cancer chemotherapy; Z88.0 Allergy status to penicillin; I10 Essential (primary) hypertension; T45.1X5A Adverse effect of antineoplastic and immunosuppressive drugs, initial encounter; Y92.89 Other specified places as the place of occurrence of the external cause; Z66 Do not resuscitate; I25.10 Atherosclerotic heart disease of native coronary artery without angina pectoris; I08.0 Rheumatic disorders of both mitral and aortic valves; I73.9 Peripheral vascular disease, unspecified; N18.9 Chronic kidney disease, unspecified; R50.81 Fever presenting with conditions classified elsewhere; Z96.659 Presence of unspecified artificial knee joint; Z98.1 Arthrodesis status; Z98.42 Cataract extraction status, left eye; Z98.41 Cataract extraction status, right eye; Z79.899 Other long term (current) drug therapy
CPT/HCPCS: 36415; 71045; 80048; 82040; 83605; 83735; 83880; 84100; 84145; 84484; 85025; 87040; 93005; 93306; 99285; G0378; J1644; J3370; J7613; J1940; J7040; J7050

== ENCOUNTER → 2018-07-19 | Outpatient (CLI) | payer MEDICARE, OTHER ==
[~2018-07-19] MED LIST changes: +FURO-93 PO; +FURO40TA6 PO; +LEVO750T26 PO; +METO25TA35 PO; +POTA10TA12 PO
== END | disposition home or self-care (01) ==
LOC: PETCFH 13:25
PROVIDERS: ATTEND Internal Medicine Hematology & Oncology
DX: J90 Pleural effusion, not elsewhere classified (principal); R19.00 Intra-abdominal and pelvic swelling, mass and lump, unspecified site
CPT/HCPCS: 78815; A9552

== ENCOUNTER 2018-08-02 15:43 | Inpatient (IN) | payer MEDICARE ==
[~2018-08-02] VITALS: Ht 182.9 cm; Wt 79.0 kg
[2018-08-02] MEDS ORDERED: ALLO300T PO (16:30)
[2018-08-02 16:31] LABS: MEAN CORPUSCULAR HEMOGLOBIN 30.9 pg (27.5-34.5); MEAN CORPUSCULAR VOLUME 90.9 fL (81-97); MEAN PLATELET VOLUME 10.2 fL (7.4-10.4); PLATELET COUNT 102 x10^3/uL (130-400); RED BLOOD COUNT 2.62 x10^6/uL (4.38-5.82); RED CELL DISTRIBUTION WIDTH 20.3 % (9.4-14.8)
[2018-08-02 16:34] LABS: ALBUMIN 3.3 g/dL (3.4-5.0); ANION GAP 9 mmol/L (5-15); CHLORIDE 108 mmol/L (98-107)
[2018-08-02 16:39] LABS: ALANINE AMINOTRANSFERASE 31 U/L (12-78); ALKALINE PHOSPHATASE 76 U/L (45-117); BILIRUBIN,TOTAL 0.6 mg/dL (0.2-1.0); CREATININE 1.33 mg/dL (0.7-1.3); TOTAL PROTEIN 6.6 g/dL (6.4-8.2); TROPONIN I 0.037 ng/mL (0.000-0.045)
[2018-08-02 16:54] LABS: MD YES
[2018-08-02 16:59] LABS: BAND#(MANUAL) 0.05 x10^3/uL; BANDS%(MANUAL) 3 % (0-7); EOS#(MANUAL) 0.12 x10^3/uL (0.0-0.4); EOS% (MANUAL) 7 % (1-7); LYMPH#(MANUAL) 0.54 x10^3/uL (1-3.4); LYMPHS% (MANUAL) 32 % (22-44); MONOS#(MANUAL) 0.09 x10^3/uL (0.3-2.7); MONOS% (MANUAL) 5 % (2-9); SEGS% (MANUAL) 53 % (42-75)
[2018-08-02 17:00] LABS: <PLATELET ESTIMATE> DECREASED; <PLT MORPHOLOGY> NORMAL PLT MORPH; ANISOCYTOSIS 1+; OVALOCYTES 1+
[2018-08-02] MEDS ORDERED: SODIUM CHLORIDE FLUSH 10ML SYR IVF PRN (17:30)
[2018-08-02] MEDS ORDERED: ONDANSETRON ODT 4 MG PO PRN (18:00)
[2018-08-02] MEDS ORDERED: POLYETHYLENE GLYCOL 17 GM PACKET PO PRN (18:00)
[2018-08-02] MEDS ORDERED: ACETAMINOPHEN 325 MG TABLET PO PRN (18:00)
[2018-08-02] MEDS ORDERED: FUROSEMIDE 40 MG/4 ML IV ONE (18:00)
[2018-08-02] MEDS ORDERED: BISACODYL 10 MG SUPP PR PRN (18:00)
[2018-08-02 19:48] VITALS: BP 110/61
[2018-08-02] MEDS: HEPARIN 5,000 UNITS/ML, 1ML SQ SCH (19:50)
[2018-08-02] MEDS: SODIUM CHLORIDE FLUSH 10ML SYR IVF SCH (19:51)
[2018-08-02] MEDS: METOPROLOL TARTRATE 25 MG TABLET PO SCH (21:00)
[2018-08-02 22:10] VITALS: BP 98/51
[2018-08-03] VITALS (7 sets, daily range): BP systolic 94–111; BP diastolic 54–68
[2018-08-03] MEDS: HEPARIN 5,000 UNITS/ML, 1ML SQ SCH ×2 (04:00→08:59)
[2018-08-03 04:30] LABS: MEAN CORPUSCULAR HEMOGLOBIN 30.5 pg (27.5-34.5); MEAN CORPUSCULAR HGB CONC 33.6 g/dL (33.2-36.2); MEAN CORPUSCULAR VOLUME 90.7 fL (81-97); RED BLOOD COUNT 2.25 x10^6/uL (4.38-5.82); RED CELL DISTRIBUTION WIDTH 20.1 % (9.4-14.8)
[2018-08-03 04:44] LABS: MD YES
[2018-08-03 04:47] LABS: ALBUMIN 2.9 g/dL (3.4-5.0); ANION GAP 10 mmol/L (5-15); CALCIUM 8.5 mg/dL (8.5-10.1); CHLORIDE 106 mmol/L (98-107)
[2018-08-03 04:48] LABS: BASOS#(MANUAL) 0.01 x10^3/uL (0-0.1); BASOS% (MANUAL) 1 % (0-1); EOS#(MANUAL) 0.28 x10^3/uL (0.0-0.4); EOS% (MANUAL) 25 % (1-7); LYMPH#(MANUAL) 0.44 x10^3/uL (1-3.4); LYMPHS% (MANUAL) 40 % (22-44); MONOS#(MANUAL) 0.11 x10^3/uL (0.3-2.7); MONOS% (MANUAL) 10 % (2-9); SEG#(MANUAL) 0.26 x10^3/uL (1.8-6.8); SEGS% (MANUAL) 24 % (42-75)
[2018-08-03 04:50] LABS: ALANINE AMINOTRANSFERASE 24 U/L (12-78); ALKALINE PHOSPHATASE 70 U/L (45-117); ANISOCYTOSIS 1+; BILIRUBIN,TOTAL 0.7 mg/dL (0.2-1.0); CREATININE 1.25 mg/dL (0.7-1.3); OVALOCYTES 1+; TOTAL PROTEIN 5.7 g/dL (6.4-8.2)
[2018-08-03 04:51] LABS: <PLATELET ESTIMATE> DECREASED; <PLT MORPHOLOGY> NORMAL PLT MORPH; MEAN PLATELET VOLUME 9.8 fL (7.4-10.4); PLATELET COUNT 82 x10^3/uL (130-400); TOXIC GRAN 1+
[2018-08-03] MEDS: PANTOPROZOLE 40MG TABLET PO SCH (08:55)
[2018-08-03] MEDS: SENNA/DOCUSATE TABLET PO SCH (08:55)
[2018-08-03] MEDS: POTASSIUM CHLORIDE 10 MEQ TABLET.ER PO SCH (08:55)
[2018-08-03] MEDS: ALLOPURINOL 300 MG TABLET PO SCH (08:55)
[2018-08-03] MEDS: METOPROLOL TARTRATE 25 MG TABLET PO SCH (09:05)
[2018-08-03] MEDS: SODIUM CHLORIDE FLUSH 10ML SYR IVF SCH ×2 (09:06→21:00)
[2018-08-03] MEDS: FUROSEMIDE 20 MG/2 ML IV SCH ×2 (09:07→17:00)
[2018-08-03] MEDS ORDERED: FUROSEMIDE 20 MG/2 ML IV ONE ×2 (12:00→19:30)
[2018-08-04 02:14] VITALS: BP 102/62
[2018-08-04 03:24] VITALS: BP 95/54
[2018-08-04 05:07] LABS: ANION GAP 10 mmol/L (5-15); CHLORIDE 103 mmol/L (98-107); CREATININE 1.46 mg/dL (0.7-1.3)
[2018-08-04 05:08] LABS: MEAN CORPUSCULAR HGB CONC 34.1 g/dL (33.2-36.2); MEAN CORPUSCULAR VOLUME 87.8 fL (81-97); MEAN PLATELET VOLUME 10.2 fL (7.4-10.4); PLATELET COUNT 92 x10^3/uL (130-400); RED BLOOD COUNT 2.86 x10^6/uL (4.38-5.82); RED CELL DISTRIBUTION WIDTH 21.8 % (9.4-14.8)
[2018-08-04 05:31] LABS: MD YES
[2018-08-04 05:38] LABS: EOS#(MANUAL) 0.34 x10^3/uL (0.0-0.4); EOS% (MANUAL) 26 % (1-7); LYMPH#(MANUAL) 0.47 x10^3/uL (1-3.4); LYMPHS% (MANUAL) 36 % (22-44); MONOS#(MANUAL) 0.23 x10^3/uL (0.3-2.7); MONOS% (MANUAL) 18 % (2-9); SEG#(MANUAL) 0.26 x10^3/uL (1.8-6.8); SEGS% (MANUAL) 20 % (42-75)
[2018-08-04 05:39] LABS: ANISOCYTOSIS 1+; OVALOCYTES 1+
[2018-08-04 05:41] LABS: <PLATELET ESTIMATE> DECREASED; TOXIC GRAN 1+
[2018-08-04 05:42] LABS: <PLT MORPHOLOGY> NORMAL PLT MORPH
[2018-08-04 07:44] VITALS: BP 103/57
[2018-08-04] MEDS: FUROSEMIDE 20 MG/2 ML IV SCH ×2 (08:36→17:29)
[2018-08-04] MEDS: ALLOPURINOL 300 MG TABLET PO SCH (08:36)
[2018-08-04] MEDS: SENNA/DOCUSATE TABLET PO SCH (08:36)
[2018-08-04] MEDS: PANTOPROZOLE 40MG TABLET PO SCH (08:36)
[2018-08-04] MEDS: POTASSIUM CHLORIDE 10 MEQ TABLET.ER PO SCH (08:36)
[2018-08-04] MEDS: SODIUM CHLORIDE FLUSH 10ML SYR IVF SCH ×2 (08:37→21:02)
[2018-08-04] MEDS ORDERED: DIPHENHYDRAMINE 12.5MG/5ML, 10ML UDC PO PRN (13:30)
[2018-08-04 13:55] VITALS: BP 104/43
[2018-08-04] MEDS ORDERED: MAGNESIUM SULFATE PMX 2GM/50ML 50 ML IV ONE (16:30)
[2018-08-04 19:29] VITALS: BP 86/47
[2018-08-04] MEDS: SODIUM CHLORIDE NASAL SPRAY 45ML BOTTLE NAS SCH (21:03)
[2018-08-04 21:11] VITALS: BP 108/64
[2018-08-04] MEDS ORDERED: OMNIPAQUE 350 MG/ML, 75ML BOTTLE ONE (22:08)
[2018-08-05 01:17] VITALS: BP 94/60
[2018-08-05 05:38] LABS: MEAN CORPUSCULAR HEMOGLOBIN 30.5 pg (27.5-34.5); MEAN CORPUSCULAR VOLUME 87.2 fL (81-97); MEAN PLATELET VOLUME 10.7 fL (7.4-10.4); PLATELET COUNT 108 x10^3/uL (130-400); RED BLOOD COUNT 2.85 x10^6/uL (4.38-5.82); RED CELL DISTRIBUTION WIDTH 21.9 % (9.4-14.8)
[2018-08-05 05:49] LABS: ANION GAP 9 mmol/L (5-15); CHLORIDE 104 mmol/L (98-107)
[2018-08-05 05:50] LABS: CREATININE 1.29 mg/dL (0.7-1.3)
[2018-08-05 06:00] LABS: MD YES
[2018-08-05 06:04] LABS: BAND#(MANUAL) 0.31 x10^3/uL; BANDS%(MANUAL) 13 % (0-7); BASOS#(MANUAL) 0.02 x10^3/uL (0-0.1); BASOS% (MANUAL) 1 % (0-1); LYMPH#(MANUAL) 0.29 x10^3/uL (1-3.4); LYMPHS% (MANUAL) 12 % (22-44); METAMYELOCYTES# (MANUAL) 0.05 x10^3/uL (0-0); METAMYELOCYTES% (MANUAL) 2 % (0-1); MONOS#(MANUAL) 0.36 x10^3/uL (0.3-2.7); MONOS% (MANUAL) 15 % (2-9); NRBC % (MANUAL) 1 % (0-1)
[2018-08-05 06:05] LABS: EOS#(MANUAL) 0.43 x10^3/uL (0.0-0.4); EOS% (MANUAL) 18 % (1-7); SEG#(MANUAL) 0.94 x10^3/uL (1.8-6.8); SEGS% (MANUAL) 39 % (42-75)
[2018-08-05 06:08] LABS: ANISOCYTOSIS 1+; OVALOCYTES 1+; TOXIC GRAN 1+
[2018-08-05 06:09] LABS: <PLATELET ESTIMATE> DECREASED; LARGE PLATELETS 1+
[2018-08-05] MEDS: FUROSEMIDE 20 MG/2 ML IV SCH ×2 (07:30→08:22)
[2018-08-05 07:34] VITALS: BP 93/59
[2018-08-05] MEDS: ALLOPURINOL 300 MG TABLET PO SCH (08:28)
[2018-08-05] MEDS: SENNA/DOCUSATE TABLET PO SCH (08:29)
[2018-08-05] MEDS: PANTOPROZOLE 40MG TABLET PO SCH (08:29)
[2018-08-05] MEDS: POTASSIUM CHLORIDE 10 MEQ TABLET.ER PO SCH (08:30)
[2018-08-05] MEDS: SODIUM CHLORIDE FLUSH 10ML SYR IVF SCH (08:35)
[2018-08-05] MEDS: SODIUM CHLORIDE NASAL SPRAY 45ML BOTTLE NAS SCH (08:35)
[2018-08-05] MEDS ORDERED: FURO-93 PO (12:14)
[2018-08-05] MEDS ORDERED: METO25TA35 PO (12:14)
[2018-08-05] MEDS ORDERED: SODI44SP NAS (12:14)
[2018-08-05 13:39] VITALS: BP 129/76
== END 2018-08-05 15:34 | disposition home or self-care (01) | DRG 291 ==
LOC: ED 17:21 → EDIP 17:25 → 3NW 18:10 → DCLOUNGE 08-05 13:24
PROVIDERS: ADMIT Family Medicine; ATTEND Family Medicine
PROC: 30233N1 Transfusion of Nonautologous Red Blood Cells into Peripheral Vein, Percutaneous Approach (ICD-10-PCS; principal; 2018-08-03)
DX: I13.0 Hypertensive heart and chronic kidney disease with heart failure and stage 1 through stage 4 chronic kidney disease, or unspecified chronic kidney disease (principal); I50.43 Acute on chronic combined systolic (congestive) and diastolic (congestive) heart failure; J96.20 Acute and chronic respiratory failure, unspecified whether with hypoxia or hypercapnia; C82.90 Follicular lymphoma, unspecified, unspecified site; D61.818 Other pancytopenia; E44.1 Mild protein-calorie malnutrition; J98.11 Atelectasis; J44.9 Chronic obstructive pulmonary disease, unspecified; R04.0 Epistaxis; I35.0 Nonrheumatic aortic (valve) stenosis; Z87.891 Personal history of nicotine dependence; I73.9 Peripheral vascular disease, unspecified; I25.10 Atherosclerotic heart disease of native coronary artery without angina pectoris; Z66 Do not resuscitate; D63.8 Anemia in other chronic diseases classified elsewhere; N18.3 Chronic kidney disease, stage 3 (moderate); Z82.49 Family history of ischemic heart disease and other diseases of the circulatory system; Z96.659 Presence of unspecified artificial knee joint; Z98.1 Arthrodesis status; Z98.42 Cataract extraction status, left eye; Z98.41 Cataract extraction status, right eye; Z68.23 Body mass index [BMI] 23.0-23.9, adult; Z88.0 Allergy status to penicillin
CPT/HCPCS: 36415; 71045; 71260; 80048; 80053; 83735; 83880; 84484; 85025; 86850; 86900; 86923; 93005; 99285; G0378; J1644; J1940; Q9967; J3475; P9040

== ENCOUNTER → 2018-09-16 | Outpatient (CLI) | payer MEDICARE ==
[~2018-09-16] MED LIST changes: +ALLO300T PO; +AMLO-150 PO; -AMLO5TAB7 PO; -ASPI-621 PO; +ASPI81TA45 PO; +SODI44SP NAS
== END | disposition home or self-care (01) ==
LOC: PETCFH 09:35
PROVIDERS: ATTEND Internal Medicine Hematology & Oncology
DX: C82.35 Follicular lymphoma grade IIIa, lymph nodes of inguinal region and lower limb (principal); J90 Pleural effusion, not elsewhere classified; J98.11 Atelectasis; I70.0 Atherosclerosis of aorta; K40.20 Bilateral inguinal hernia, without obstruction or gangrene, not specified as recurrent
CPT/HCPCS: 78815; A9552

== ENCOUNTER 2018-10-18 06:03 | Inpatient (IN) | payer MEDICARE ==
[~2018-10-18] VITALS: Ht 182.9 cm; Wt 71.5 kg
[~2018-10-18 06:03] MED LIST changes: -AMLO10TA6 PO; +AMLO10TA8 PO
[2018-10-18] MEDS ORDERED: SODIUM CHLORIDE 0.9% 1,000 ML IV ONE (06:15)
[2018-10-18] MEDS ORDERED: ONDANSETRON 2MG/ML, 2ML IVPush PRN (06:30)
[2018-10-18] MEDS ORDERED: CHLORHEXIDINE 15 ML UDC MM PRN (06:30)
[2018-10-18 06:34] VITALS: BP 129/67
[2018-10-18] MEDS ORDERED: METO25TA35 PO (06:53)
[2018-10-18] MEDS ORDERED: PANT20TA2 PO (06:53)
[2018-10-18 07:16] LABS: BASOPHILS # (AUTO) 0.04 x10^3/uL (0-0.1); BASOPHILS % (AUTO) 1 % (0-1); EOSINOPHILS # (AUTO) 0.46 x10^3/uL (0-0.4); EOSINOPHILS % (AUTO) 12 % (1-7); LYMPHOCYTES # (AUTO) 0.57 x10^3/uL (1-3.4); LYMPHOCYTES % (AUTO) 14 % (22-44); MD NO; MEAN CORPUSCULAR HEMOGLOBIN 29.5 pg (27.5-34.5); MEAN CORPUSCULAR HGB CONC 32.9 g/dL (33.2-36.2); MEAN CORPUSCULAR VOLUME 89.7 fL (81-97); MEAN PLATELET VOLUME 8.6 fL (7.4-10.4); MONOCYTES % (AUTO) 10 % (2-9); NEUTROPHILS # (AUTO) 2.53 x10^3/uL (1.8-6.8); NEUTROPHILS % (AUTO) 63 % (42-75); PLATELET COUNT 130 x10^3/uL (130-400); RED CELL DISTRIBUTION WIDTH 16.2 % (9.4-14.8)
[2018-10-18] MEDS ORDERED: FENTANYL PF 250 MCG/5ML ONE (07:27)
[2018-10-18 07:28] LABS: ALANINE AMINOTRANSFERASE 14 U/L (12-78); ALBUMIN 3.7 g/dL (3.4-5.0); ANION GAP 4 mmol/L (5-15); CALCIUM 9.6 mg/dL (8.5-10.1); CHLORIDE 106 mmol/L (98-107); CREATININE 1.47 mg/dL (0.7-1.3)
[2018-10-18 07:32] LABS: ALKALINE PHOSPHATASE 75 U/L (45-117); BILIRUBIN,TOTAL 0.4 mg/dL (0.2-1.0); TOTAL PROTEIN 6.6 g/dL (6.4-8.2)
[2018-10-18 07:35] LABS: INTERNATIONAL NORMALIZED RATIO 1.06 (0.93-1.1); PROTHROMBIN TIME 11.2 Seconds (9.6-11.5)
[2018-10-18] MEDS ORDERED: PROPOFOL 10 MG/ML, 20ML ONE (09:55)
[2018-10-18] MEDS ORDERED: CEFAZOLIN 1,000 MG ONE (09:55)
[2018-10-18] MEDS ORDERED: SUCCINYLCHOLINE 20 MG/ML, 10ML ONE (09:55)
[2018-10-18] MEDS ORDERED: ROCURONIUM 10MG/ML,5ML ONE (09:55)
[2018-10-18] MEDS ORDERED: ONDANSETRON 2MG/ML, 2ML ONE (09:55)
[2018-10-18] MEDS ORDERED: hydrALAzine 20 MG/ML, 1ML IVPush PRN (10:00)
[2018-10-18] MEDS ORDERED: CLOPIDOGREL 300 MG TABLET PO ONE (10:00)
[2018-10-18] MEDS ORDERED: LABETALOL 20 MG/4 ML IVPush PRN (10:00)
[2018-10-18] MEDS ORDERED: SODIUM CHLORIDE NASAL SPRAY 45ML BOTTLE NAS PRN (10:00)
[2018-10-18] MEDS ORDERED: HYDROcodone/APAP 5/325 TABLET PO PRN (10:00)
[2018-10-18] MEDS: ACETAMINOPHEN 325 MG TABLET PO PRN (10:24)
[2018-10-18 13:30] VITALS: BP 154/78
[2018-10-18 18:36] VITALS: BP 166/93
[2018-10-18] MEDS: FUROSEMIDE 20 MG TABLET PO SCH (20:50)
[2018-10-18 23:55] VITALS: BP 125/62
[2018-10-19] MEDS: ACETAMINOPHEN 325 MG TABLET PO PRN (00:53)
[2018-10-19 06:13] LABS: MEAN CORPUSCULAR HEMOGLOBIN 29.7 pg (27.5-34.5); MEAN CORPUSCULAR VOLUME 89.9 fL (81-97); RED BLOOD COUNT 2.93 x10^6/uL (4.38-5.82); RED CELL DISTRIBUTION WIDTH 16.3 % (9.4-14.8)
[2018-10-19 06:18] LABS: ANION GAP 6 mmol/L (5-15); CHLORIDE 103 mmol/L (98-107)
[2018-10-19 06:20] LABS: CREATININE 1.34 mg/dL (0.7-1.3)
[2018-10-19 07:06] LABS: MEAN PLATELET VOLUME 9.3 fL (7.4-10.4); PLATELET COUNT 105 x10^3/uL (130-400)
[2018-10-19 07:10] LABS: BASOPHILS # (AUTO) 0.03 x10^3/uL (0-0.1); BASOPHILS % (AUTO) 1 % (0-1); EOSINOPHILS # (AUTO) 0.26 x10^3/uL (0-0.4); EOSINOPHILS % (AUTO) 6 % (1-7); LYMPHOCYTES # (AUTO) 0.38 x10^3/uL (1-3.4); LYMPHOCYTES % (AUTO) 8 % (22-44); MD MORPH REVIEW ONLY; MONOCYTES # (AUTO) 0.49 x10^3/uL (0.2-0.8); MONOCYTES % (AUTO) 11 % (2-9); NEUTROPHILS # (AUTO) 3.39 x10^3/uL (1.8-6.8); NEUTROPHILS % (AUTO) 75 % (42-75)
[2018-10-19 07:11] LABS: <PLATELET ESTIMATE> DECREASED; <PLT MORPHOLOGY> NORMAL PLT MORPH; ANISOCYTOSIS 1+; OVALOCYTES 1+
[2018-10-19 07:12] VITALS: BP 107/57
[2018-10-19] MEDS: FUROSEMIDE 20 MG TABLET PO SCH (07:43)
[2018-10-19] MEDS ORDERED: PANTOPRAZOLE 20MG TABLET PO SCH (09:00)
[2018-10-19] MEDS ORDERED: CLOPIDOGREL 75 MG TABLET PO SCH (09:00)
[2018-10-19] MEDS ORDERED: POTASSIUM CHLORIDE 10 MEQ TABLET.ER PO SCH (09:00)
[2018-10-19 12:23] VITALS: BP 117/62
[2018-10-19] MEDS ORDERED: CLOP75TA52 PO (14:15)
== END 2018-10-19 15:59 | disposition home or self-care (01) | DRG 266 ==
LOC: ORIP 06:03 → CCU 09:38 → 5SO 18:14
PROVIDERS: ADMIT Internal Medicine Cardiovascular Disease; ATTEND Internal Medicine Cardiovascular Disease
PROC: B24BZZ4 Ultrasonography of Heart with Aorta, Transesophageal (ICD-10-PCS; 2018-10-18)
PROC: B3101ZZ Fluoroscopy of Thoracic Aorta using Low Osmolar Contrast (ICD-10-PCS; 2018-10-18)
PROC: B2101ZZ Fluoroscopy of Single Coronary Artery using Low Osmolar Contrast (ICD-10-PCS; 2018-10-18)
PROC: 03HY32Z Insertion of Monitoring Device into Upper Artery, Percutaneous Approach (ICD-10-PCS; 2018-10-18)
PROC: 02RF38Z Replacement of Aortic Valve with Zooplastic Tissue, Percutaneous Approach (ICD-10-PCS; principal; 2018-10-18 08:00)
DX: I35.0 Nonrheumatic aortic (valve) stenosis (principal); Z00.6 Encounter for examination for normal comparison and control in clinical research program; I50.33 Acute on chronic diastolic (congestive) heart failure; I42.9 Cardiomyopathy, unspecified; E78.5 Hyperlipidemia, unspecified; I11.0 Hypertensive heart disease with heart failure; I25.10 Atherosclerotic heart disease of native coronary artery without angina pectoris; K21.9 Gastro-esophageal reflux disease without esophagitis; M10.9 Gout, unspecified; F17.210 Nicotine dependence, cigarettes, uncomplicated; Z85.72 Personal history of non-Hodgkin lymphomas; Z95.5 Presence of coronary angioplasty implant and graft
CPT/HCPCS: 33361; 36415; 80048; 80053; 83880; 85025; 85347; 85610; 85730; 86850; 86900; 86923; 87081; 93005; 93308; 93312; 93321; 93325; 93355; C1760; C1769; C1894; G0378; J0690; J2405; J2704; J3010; J0330; J0360; J7030; Q9967

== ENCOUNTER → 2019-02-07 | Outpatient (CLI) | payer MEDICARE ==
[~2019-02-07] MED LIST changes: +ASPI-515 PO; +ATOR-2 PO; +PANT20TA2 PO
== END | disposition home or self-care (01) ==
LOC: PETCFH 12:20
PROVIDERS: ATTEND Internal Medicine Hematology & Oncology
DX: C82.35 Follicular lymphoma grade IIIa, lymph nodes of inguinal region and lower limb (principal); R59.0 Localized enlarged lymph nodes
CPT/HCPCS: 78815; A9552

== ENCOUNTER 2019-05-10 11:22 | Outpatient (CLI) | payer MEDICARE | END 2019-05-10 23:59 | disposition home or self-care (01) | LOC: PETCFH 11:22 | PROVIDERS: ATTEND Internal Medicine Hematology & Oncology | DX: C82.35 Follicular lymphoma grade IIIa, lymph nodes of inguinal region and lower limb (principal) | CPT/HCPCS: 78815; A9552 ==

== ENCOUNTER → 2019-08-24 | Outpatient (CLI) | payer MEDICARE | END | disposition home or self-care (01) | LOC: PETCFH 08:40 | PROVIDERS: ATTEND Internal Medicine Hematology & Oncology | DX: C82.35 Follicular lymphoma grade IIIa, lymph nodes of inguinal region and lower limb (principal); R19.09 Other intra-abdominal and pelvic swelling, mass and lump; I89.8 Other specified noninfective disorders of lymphatic vessels and lymph nodes; J44.9 Chronic obstructive pulmonary disease, unspecified; Z87.891 Personal history of nicotine dependence | CPT/HCPCS: 78815; A9552 ==

== ENCOUNTER 2019-10-09 11:39 | Inpatient (IN) | payer MEDICARE ==
[~2019-10-09] VITALS: Ht 182.9 cm; Wt 83.2 kg
[2019-10-09] MEDS ORDERED: SODIUM CHLORIDE FLUSH 10ML SYR IVF ONE (12:30)
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
[2019-10-09] MEDS ORDERED: ROSU20TA2 PO (12:46)
--- NOTE | 2019-10-09 12:46 | NUR ---
MED REC COMPLETED BY THIS RN.
[2019-10-09 12:56] LABS: ALANINE AMINOTRANSFERASE 298 U/L (12-78); ALBUMIN 3.1 g/dL (3.4-5.0); ANION GAP 11 mmol/L (5-15); CALCIUM 8.8 mg/dL (8.5-10.1); CHLORIDE 109 mmol/L (98-107); CREATININE 1.46 mg/dL (0.7-1.3)
[2019-10-09 13:10] LABS: ALKALINE PHOSPHATASE 1216 U/L (45-117); BILIRUBIN,TOTAL 13.8 mg/dL (0.2-1.0); TOTAL PROTEIN 6.6 g/dL (6.4-8.2)
--- NOTE | 2019-10-09 13:14 | NUR ---
BEDSIDE REPORT GIVEN TO MARY KIDD. CARE TRANSFERRED.
--- NOTE | 2019-10-09 13:17 | NUR ---
BEDSIDE REPORT RECEIVED FROM MARY MURPHY. ASSUMING CARE AT THIS TIME. PT RESTING IN ROOM. VSS. NO NEEDS EXPRESSED.
--- NOTE | 2019-10-09 13:21 | NUR ---
US TO BS.
[2019-10-09 13:27] LABS: MEAN CORPUSCULAR HEMOGLOBIN 29.6 pg (27.5-34.5); MEAN CORPUSCULAR HGB CONC 33.6 g/dL (33.2-36.2); MEAN CORPUSCULAR VOLUME 88.1 fL (81-97); PLATELET COUNT 175 x10^3/uL (130-400); RED BLOOD COUNT 3.59 x10^6/uL (4.38-5.82); RED CELL DISTRIBUTION WIDTH 16.6 % (9.4-14.8)
[2019-10-09 13:28] LABS: MD YES
[2019-10-09 13:31] LABS: BAND#(MANUAL) 0.15 x10^3/uL; BANDS%(MANUAL) 3 % (0-7); BASOS#(MANUAL) 0.05 x10^3/uL (0-0.1); BASOS% (MANUAL) 1 % (0-1); EOS#(MANUAL) 0.31 x10^3/uL (0.0-0.4); EOS% (MANUAL) 6 % (1-7); LYMPH#(MANUAL) 0.56 x10^3/uL (1-3.4); LYMPHS% (MANUAL) 11 % (22-44); METAMYELOCYTES# (MANUAL) 0.05 x10^3/uL (0-0); METAMYELOCYTES% (MANUAL) 1 % (0-1); MONOS#(MANUAL) 0.46 x10^3/uL (0.3-2.7); MONOS% (MANUAL) 9 % (2-9); SEG#(MANUAL) 3.52 x10^3/uL (1.8-6.8); SEGS% (MANUAL) 69 % (42-75)
[2019-10-09 13:32] LABS: <PLATELET ESTIMATE> ADEQUATE; <PLT MORPHOLOGY> NORMAL PLT MORPH; ANISOCYTOSIS 1+
--- NOTE | 2019-10-09 13:58 | NUR ---
PT RESTING IN ROOM WITH FAMILY AT BS. VSS. NO NEEDS EXPRESSED. CALL LIGHT WITHIN REACH. PT AWARE OF NEED FOR UA. AWAITING US RESULTS.
--- NOTE | 2019-10-09 14:27 | NUR ---
UA COLLECTED AND SENT TO LAB. VSS. NO NEEDS EXPRESSED. AWAITING RESULTS.
[2019-10-09 14:56] LABS: CULTURE INDICATED? YES; MICROSCOPIC INDICATED
--- NOTE | 2019-10-09 15:18 | NUR ---
TASK RN NOTE: PT LAYING BACK IN BED RESTING WITH EYES CLOSED. NAD NOTED AT THIS TIME. RESPIRATIONS EVEN AND UNLABORED. AWAITING UA MICRO. SIDE RAILS UP, CALL LIGHT IN REACH.
--- NOTE | 2019-10-09 15:26 | NUR ---
TASK RN NOTE: PT UP FOR RECHECK.
[2019-10-09] MEDS ORDERED: hydrALAzine 20 MG/ML, 1ML IVPush PRN (16:30)
[2019-10-09] MEDS ORDERED: ONDANSETRON 2MG/ML, 2ML IVPush PRN (16:30)
[2019-10-09] MEDS ORDERED: OXYcodone IR 5MG TABLET PO PRN (16:30)
[2019-10-09] MEDS ORDERED: ACETAMINOPHEN 325 MG TABLET PO PRN (16:30)
[2019-10-09] MEDS ORDERED: METHOCARBAMOL 500 MG TABLET PO PRN (16:30)
[2019-10-09] MEDS ORDERED: MORPHINE SULFATE 4 MG/ML, 1ML IVPush PRN (16:30)
[2019-10-09] MEDS ORDERED: ONDANSETRON ODT 4 MG PO PRN (16:30)
[2019-10-09] MEDS: SODIUM CHLORIDE 0.9% 1,000 ML IV SCH ×2 (16:35→22:57)
--- NOTE | 2019-10-09 16:38 | NUR ---
PT RESTING IN ROOM. VSS. IVF STARTED. FLOOR ORDERS RECEIVED. PT TO CT AT THIS TIME.
[2019-10-09 16:51] LABS: BILIRUBIN,INDIRECT 2.2 mg/dL (0.0-2.0); BILIRUBIN,TOTAL 13.5 mg/dL (0.2-1.0)
[2019-10-09 16:52] LABS: BILIRUBIN, DIRECT 11.3 mg/dL (0.1-0.2)
--- NOTE | 2019-10-09 17:00 | NUR ---
PT CURRENTLY IN CT. PT WILL GO TO MRI PRIOR TO RETURNING TO ROOM.
--- NOTE | 2019-10-09 17:55 | NUR ---
REPORT TO MARY CERVANTES. PT READY FOR TRANSPORT WHEN RETURNS FROM MRI.
[2019-10-09 19:57] VITALS: BP 137/72
[2019-10-10 02:00] VITALS: BP 124/58
[2019-10-10 05:12] LABS: MEAN CORPUSCULAR HEMOGLOBIN 29.8 pg (27.5-34.5); MEAN CORPUSCULAR HGB CONC 33.7 g/dL (33.2-36.2); MEAN CORPUSCULAR VOLUME 88.5 fL (81-97); MEAN PLATELET VOLUME 10.2 fL (7.4-10.4); PLATELET COUNT 165 x10^3/uL (130-400); RED BLOOD COUNT 3.05 x10^6/uL (4.38-5.82); RED CELL DISTRIBUTION WIDTH 16.3 % (9.4-14.8)
[2019-10-10 05:19] LABS: ALBUMIN 2.6 g/dL (3.4-5.0); ANION GAP 8 mmol/L (5-15); CALCIUM 8.3 mg/dL (8.5-10.1); CHLORIDE 114 mmol/L (98-107)
[2019-10-10 05:34] LABS: ALANINE AMINOTRANSFERASE 253 U/L (12-78); ALKALINE PHOSPHATASE 1089 U/L (45-117); BILIRUBIN,TOTAL 11.3 mg/dL (0.2-1.0); TOTAL PROTEIN 5.4 g/dL (6.4-8.2)
[2019-10-10 05:52] LABS: MD YES
[2019-10-10 05:54] LABS: <PLATELET ESTIMATE> ADEQUATE; ANISOCYTOSIS 1+; BAND#(MANUAL) 0.09 x10^3/uL; BANDS%(MANUAL) 2 % (0-7); BASOS#(MANUAL) 0.05 x10^3/uL (0-0.1); BASOS% (MANUAL) 1 % (0-1); EOS#(MANUAL) 0.19 x10^3/uL (0.0-0.4); EOS% (MANUAL) 4 % (1-7); LYMPH#(MANUAL) 0.56 x10^3/uL (1-3.4); LYMPHS% (MANUAL) 12 % (22-44); MONOS#(MANUAL) 0.19 x10^3/uL (0.3-2.7); MONOS% (MANUAL) 4 % (2-9); SEG#(MANUAL) 3.62 x10^3/uL (1.8-6.8); SEGS% (MANUAL) 77 % (42-75)
[2019-10-10 05:55] LABS: LARGE PLATELETS 1+
[2019-10-10] MEDS: SODIUM CHLORIDE 0.9% 1,000 ML IV SCH ×3 (06:12→22:53)
[2019-10-10 07:00] VITALS: BP 125/65
[2019-10-10] MEDS ORDERED: CLOPIDOGREL 75 MG TABLET PO SCH (09:00)
[2019-10-10] MEDS: AMLODIPINE 5 MG TABLET PO SCH (10:13)
[2019-10-10 12:58] VITALS: BP 146/70
[2019-10-10 20:04] VITALS: BP 148/66
[2019-10-11 02:15] VITALS: BP 138/68
[2019-10-11] MEDS: SODIUM CHLORIDE 0.9% 1,000 ML IV SCH ×2 (06:29→13:54)
[2019-10-11 07:15] VITALS: BP 149/74
[2019-10-11] MEDS ORDERED: MEPERIDINE/PF 25MG/ML,1ML IVPush PRN (08:30)
[2019-10-11] MEDS ORDERED: HALOPERIDOL 5 MG/ML IV PRN (08:30)
[2019-10-11] MEDS ORDERED: hydrALAzine 20 MG/ML, 1ML IV PRN (08:30)
[2019-10-11] MEDS ORDERED: FENTANYL PF 100 MCG/2ML IV PRN (08:30)
[2019-10-11] MEDS ORDERED: PROMETHAZINE 25 MG/ML, 1ML IV PRN (08:30)
[2019-10-11] MEDS ORDERED: LABETALOL 5MG/ML, 20ML IV PRN (08:30)
[2019-10-11] MEDS ORDERED: HYDROmorphone 2 MG/ML, 1ML IVPush PRN (08:30)
[2019-10-11 08:58] LABS: INTERNATIONAL NORMALIZED RATIO 1.62 (0.93-1.1); PROTHROMBIN TIME 16.7 Seconds (9.6-11.5)
[2019-10-11] MEDS: AMLODIPINE 5 MG TABLET PO SCH ×2 (09:00→12:11)
[2019-10-11] MEDS ORDERED: FENTANYL PF 100 MCG/2ML ONE ×2 (09:05→09:52)
[2019-10-11] MEDS ORDERED: EPHEDRINE 50 MG/ML, 1ML ONE (09:31)
[2019-10-11] MEDS ORDERED: GLUCAGON 1 MG ONE (10:19)
[2019-10-11] MEDS ORDERED: GLYCOPYRROLATE 0.2MG/1ML, 5ML ONE (10:37)
[2019-10-11] MEDS ORDERED: DEXAMETHASONE 4 MG/ML, 1ML ONE (10:37)
[2019-10-11] MEDS ORDERED: CEFAZOLIN 1,000 MG ONE (10:37)
[2019-10-11] MEDS ORDERED: NEOSTIGMINE 1 MG/ML, 10ML ONE (10:37)
[2019-10-11] MEDS ORDERED: ROCURONIUM 10MG/ML,5ML ONE (10:37)
[2019-10-11] MEDS ORDERED: PROPOFOL 10 MG/ML, 20ML ONE (10:37)
[2019-10-11] MEDS ORDERED: SUCCINYLCHOLINE 20 MG/ML, 10ML ONE (10:37)
[2019-10-11] MEDS ORDERED: ONDANSETRON 2MG/ML, 2ML ONE (10:37)
[2019-10-11] MEDS ORDERED: INDOMETHACIN 50 MG SUPP.RECT ONE (10:48)
[2019-10-11] MEDS ORDERED: INDOMETHACIN 50 MG SUPP.RECT PR ONE ×2 (11:00→12:00)
[2019-10-11 12:25] LABS: ALANINE AMINOTRANSFERASE 219 U/L (12-78); ALBUMIN 2.5 g/dL (3.4-5.0); ANION GAP 9 mmol/L (5-15); CALCIUM 8.9 mg/dL (8.5-10.1); CHLORIDE 114 mmol/L (98-107)
[2019-10-11 12:38] LABS: CREATININE 1.28 mg/dL (0.7-1.3)
[2019-10-11 12:39] LABS: ALKALINE PHOSPHATASE 1030 U/L (45-117); BILIRUBIN,TOTAL 12.8 mg/dL (0.2-1.0); TOTAL PROTEIN 5.4 g/dL (6.4-8.2)
[2019-10-11 13:11] VITALS: BP 161/79
[2019-10-11 20:47] VITALS: BP 134/67
[2019-10-12] MEDS: SODIUM CHLORIDE 0.9% 1,000 ML IV SCH ×2 (00:47→16:06)
[2019-10-12 01:58] VITALS: BP 146/72
[2019-10-12 07:10] VITALS: BP 143/75
[2019-10-12 09:07] LABS: ALANINE AMINOTRANSFERASE 197 U/L (12-78); ALBUMIN 2.5 g/dL (3.4-5.0); ANION GAP 9 mmol/L (5-15); BILIRUBIN, DIRECT 5.5 mg/dL (0.1-0.2); CALCIUM 8.6 mg/dL (8.5-10.1); CHLORIDE 112 mmol/L (98-107); CREATININE 1.31 mg/dL (0.7-1.3); MEAN CORPUSCULAR HEMOGLOBIN 29.8 pg (27.5-34.5); MEAN CORPUSCULAR HGB CONC 33.9 g/dL (33.2-36.2); MEAN CORPUSCULAR VOLUME 87.9 fL (81-97); MEAN PLATELET VOLUME 9.9 fL (7.4-10.4); PLATELET COUNT 186 x10^3/uL (130-400); RED CELL DISTRIBUTION WIDTH 17.2 % (9.4-14.8)
[2019-10-12 09:21] LABS: ALKALINE PHOSPHATASE 970 U/L (45-117); BILIRUBIN,INDIRECT 1.1 mg/dL (0.0-2.0); BILIRUBIN,TOTAL 6.6 mg/dL (0.2-1.0); TOTAL PROTEIN 5.6 g/dL (6.4-8.2)
[2019-10-12 09:37] LABS: MD YES
[2019-10-12 09:38] LABS: EOS#(MANUAL) 0.06 x10^3/uL (0.0-0.4); EOS% (MANUAL) 1 % (1-7); LYMPHS% (MANUAL) 9 % (22-44); MONOS#(MANUAL) 0.44 x10^3/uL (0.3-2.7); MONOS% (MANUAL) 8 % (2-9); SEG#(MANUAL) 4.51 x10^3/uL (1.8-6.8); SEGS% (MANUAL) 82 % (42-75)
[2019-10-12 09:39] LABS: <PLATELET ESTIMATE> ADEQUATE; <PLT MORPHOLOGY> NORMAL PLT MORPH; ANISOCYTOSIS 1+
[2019-10-12 14:20] VITALS: BP 149/76
[2019-10-12 20:11] VITALS: BP 119/75
[2019-10-12] MEDS ORDERED: ATORVASTATIN 40 MG TABLET PO SCH (21:00)
[2019-10-13] VITALS (9 sets, daily range): BP systolic 126–160; BP diastolic 68–85
[2019-10-13 04:39] LABS: MEAN CORPUSCULAR HEMOGLOBIN 30.4 pg (27.5-34.5); MEAN CORPUSCULAR HGB CONC 34.4 g/dL (33.2-36.2); MEAN CORPUSCULAR VOLUME 88.4 fL (81-97); MEAN PLATELET VOLUME 9.2 fL (7.4-10.4); PLATELET COUNT 187 x10^3/uL (130-400); RED CELL DISTRIBUTION WIDTH 17.2 % (9.4-14.8)
[2019-10-13 04:53] LABS: ALBUMIN 2.1 g/dL (3.4-5.0); ANION GAP 7 mmol/L (5-15); CALCIUM 7.6 mg/dL (8.5-10.1); CHLORIDE 115 mmol/L (98-107)
[2019-10-13 04:57] LABS: ALANINE AMINOTRANSFERASE 204 U/L (12-78); ALKALINE PHOSPHATASE 818 U/L (45-117); BILIRUBIN,TOTAL 4.2 mg/dL (0.2-1.0); CREATININE 1.27 mg/dL (0.7-1.3); TOTAL PROTEIN 4.9 g/dL (6.4-8.2)
[2019-10-13] MEDS: SODIUM CHLORIDE 0.9% 1,000 ML IV SCH ×2 (05:40→06:20)
[2019-10-13 05:42] LABS: MD YES
[2019-10-13 05:44] LABS: EOS#(MANUAL) 0.34 x10^3/uL (0.0-0.4); EOS% (MANUAL) 7 % (1-7); LYMPH#(MANUAL) 0.59 x10^3/uL (1-3.4); LYMPHS% (MANUAL) 12 % (22-44); MONOS#(MANUAL) 0.49 x10^3/uL (0.3-2.7); MONOS% (MANUAL) 10 % (2-9); SEG#(MANUAL) 3.48 x10^3/uL (1.8-6.8); SEGS% (MANUAL) 71 % (42-75)
[2019-10-13 05:45] LABS: <PLATELET ESTIMATE> ADEQUATE; <PLT MORPHOLOGY> NORMAL PLT MORPH; ANISOCYTOSIS 1+; OVALOCYTES 1+
[2019-10-13] MEDS: AMLODIPINE 5 MG TABLET PO SCH (09:00)
[2019-10-13] MEDS ORDERED: MIDAZOLAM 1 MG/ML, 5ML ONE (09:28)
[2019-10-13] MEDS ORDERED: FENTANYL PF 100 MCG/2ML ONE (09:28)
[2019-10-13] MEDS ORDERED: FLUMAZENIL 0.1 MG/1 ML, 5ML ONE (09:28)
[2019-10-13] MEDS ORDERED: NALOXONE 1 MG/ML, 2ML ONE (09:28)
[2019-10-13] MEDS ORDERED: LIDOCAINE 1%, 10ML ONE (10:30)
[2019-10-13] MEDS ORDERED: AMLODIPINE 5 MG TABLET PO ONE (14:30)
[2019-10-28] MEDS ORDERED: ACYC-114 PO (08:46)
[2019-10-28] MEDS ORDERED: LEVO500T8 PO (08:46)
[2019-10-28] MEDS ORDERED: ALLO100T30 PO (08:46)
[2019-10-28] MEDS ORDERED: POTA20TA89 PO (08:46)
[2019-10-28] MEDS ORDERED: ROSU20TA2 PO (08:46)
== END 2019-10-13 15:19 | disposition left against medical advice (07) | DRG 840 ==
LOC: ED 13:59 → EDIP 16:05 → 3N 18:19
PROVIDERS: ADMIT Internal Medicine; ATTEND Hospitalist
PROC: 0F798DZ Dilation of Common Bile Duct with Intraluminal Device, Via Natural or Artificial Opening Endoscopic (ICD-10-PCS; 2019-10-09)
PROC: BF101ZZ Fluoroscopy of Bile Ducts using Low Osmolar Contrast (ICD-10-PCS; 2019-10-09)
PROC: 0FD98ZX Extraction of Common Bile Duct, Via Natural or Artificial Opening Endoscopic, Diagnostic (ICD-10-PCS; 2019-10-09)
PROC: 0WBH3ZX Excision of Retroperitoneum, Percutaneous Approach, Diagnostic (ICD-10-PCS; principal; 2019-10-13)
PROC: 0WBC3ZX Excision of Mediastinum, Percutaneous Approach, Diagnostic (ICD-10-PCS; 2019-10-13)
DX: C83.38 Diffuse large B-cell lymphoma, lymph nodes of multiple sites (principal); K83.1 Obstruction of bile duct; N17.0 Acute kidney failure with tubular necrosis; I42.9 Cardiomyopathy, unspecified; E46 Unspecified protein-calorie malnutrition; B17.9 Acute viral hepatitis, unspecified; E87.2 Acidosis; N13.30 Unspecified hydronephrosis; E78.5 Hyperlipidemia, unspecified; K21.9 Gastro-esophageal reflux disease without esophagitis; D64.9 Anemia, unspecified; I11.0 Hypertensive heart disease with heart failure; I25.10 Atherosclerotic heart disease of native coronary artery without angina pectoris; I35.0 Nonrheumatic aortic (valve) stenosis; I50.9 Heart failure, unspecified; J43.9 Emphysema, unspecified; K82.4 Cholesterolosis of gallbladder; M10.9 Gout, unspecified; R73.9 Hyperglycemia, unspecified; Z66 Do not resuscitate; Z79.02 Long term (current) use of antithrombotics/antiplatelets; Z87.19 Personal history of other diseases of the digestive system; Z87.891 Personal history of nicotine dependence; Z95.2 Presence of prosthetic heart valve; Z95.5 Presence of coronary angioplasty implant and graft; Z68.24 Body mass index [BMI] 24.0-24.9, adult; Z86.73 Personal history of transient ischemic attack (TIA), and cerebral infarction without residual deficits
CPT/HCPCS: 36415; 49180; 74177; 74181; 74328; 76700; 77012; 80053; 81001; 82247; 82248; 83036; 83615; 83690; 84550; 85025; 85610; 85730; 87086; 88104; 88108; 88184; 88185; 88305; 88341; 88342; 88360; 99156; 99157; 99285; G0378; J0690; J1100; J2250; J2405; J2704; J2710; J3010; C1769; C1894; C2625; J0330; J1610; J2310; J7030

== ENCOUNTER 2019-10-19 11:02 | Inpatient (IN) | payer MEDICARE ==
[~2019-10-19] VITALS: Ht 182.9 cm; Wt 89.3 kg
[~2019-10-19 11:02] MED LIST changes: +ROSU20TA2 PO
[2019-10-19 12:08] VITALS: BP 133/69
[2019-10-19 12:38] LABS: MEAN CORPUSCULAR HEMOGLOBIN 30.2 pg (27.5-34.5); MEAN CORPUSCULAR HGB CONC 33.5 g/dL (33.2-36.2); MEAN CORPUSCULAR VOLUME 90.1 fL (81-97); MEAN PLATELET VOLUME 8.6 fL (7.4-10.4); PLATELET COUNT 193 x10^3/uL (130-400); RED BLOOD COUNT 3.01 x10^6/uL (4.38-5.82); RED CELL DISTRIBUTION WIDTH 17.3 % (9.4-14.8)
[2019-10-19 12:50] LABS: ALBUMIN 2.9 g/dL (3.4-5.0); ANION GAP 8 mmol/L (5-15); CALCIUM 8.2 mg/dL (8.5-10.1); CHLORIDE 109 mmol/L (98-107)
[2019-10-19 12:54] LABS: CREATININE 1.33 mg/dL (0.7-1.3)
[2019-10-19 12:55] LABS: ALANINE AMINOTRANSFERASE 157 U/L (12-78); ALKALINE PHOSPHATASE 472 U/L (45-117); BILIRUBIN,TOTAL 3.1 mg/dL (0.2-1.0); TOTAL PROTEIN 6.6 g/dL (6.4-8.2)
[2019-10-19 13:47] LABS: MD YES
[2019-10-19 13:51] LABS: BANDS%(MANUAL) 4 % (0-7); EOS% (MANUAL) 4 % (1-7); LYMPH#(MANUAL) 0.97 x10^3/uL (1-3.4); LYMPHS% (MANUAL) 19 % (22-44); MONOS#(MANUAL) 0.41 x10^3/uL (0.3-2.7); MONOS% (MANUAL) 8 % (2-9); SEG#(MANUAL) 3.32 x10^3/uL (1.8-6.8); SEGS% (MANUAL) 65 % (42-75)
[2019-10-19 13:52] LABS: ANISOCYTOSIS 1+
[2019-10-19 13:53] LABS: <PLATELET ESTIMATE> ADEQUATE; <PLT MORPHOLOGY> NORMAL PLT MORPH; OVALOCYTES 1+
[2019-10-19] MEDS ORDERED: FAMOTIDINE 20 MG/2 ML IVPush ONE (15:00)
[2019-10-19] MEDS ORDERED: DIPHENHYDRAMINE 50 MG/ML, 1ML IVPush ONE (15:00)
[2019-10-19] MEDS ORDERED: ACETAMINOPHEN 325 MG TABLET PO ONE (15:00)
[2019-10-19] MEDS ORDERED: ONDANSETRON IVPB ONE (15:30)
[2019-10-19] MEDS ORDERED: SODIUM CHLORIDE 0.9% IVPB ONE (15:30)
[2019-10-19] MEDS ORDERED: DEXAMETHASONE IVPB ONE (15:30)
[2019-10-19] MEDS ORDERED: ONDANSETRON 8 MG, DEXAMETHASONE 10 MG in SODIUM CHLORIDE 0.9% 50 ML IVPB ONE (15:30)
[2019-10-19] MEDS: SODIUM CHLORIDE 0.9% 1,000 ML IV SCH ×2 (15:40→23:01)
[2019-10-19] MEDS ORDERED: RITUXIMAB 750 MG in SODIUM CHLORIDE 0.9% 250 ML IV ONE (16:00)
[2019-10-19] MEDS: ALLOPURINOL 300 MG TABLET PO SCH (16:33)
[2019-10-19 19:28] VITALS: BP 111/55
[2019-10-19] MEDS: ATORVASTATIN 80 MG TABLET PO SCH (21:17)
[2019-10-20 02:06] VITALS: BP 132/66
[2019-10-20 06:12] LABS: CHLORIDE 111 mmol/L (98-107)
[2019-10-20 06:21] LABS: ALANINE AMINOTRANSFERASE 115 U/L (12-78); ALBUMIN 2.4 g/dL (3.4-5.0); ALKALINE PHOSPHATASE 365 U/L (45-117); ANION GAP 10 mmol/L (5-15); BILIRUBIN,TOTAL 2.6 mg/dL (0.2-1.0); CALCIUM 8.4 mg/dL (8.5-10.1); CREATININE 1.22 mg/dL (0.7-1.3); TOTAL PROTEIN 5.6 g/dL (6.4-8.2)
[2019-10-20 08:08] VITALS: BP 150/81
[2019-10-20] MEDS: AMLODIPINE 5 MG TABLET PO SCH (08:36)
[2019-10-20 08:37] LABS: MEAN CORPUSCULAR HEMOGLOBIN 29.9 pg (27.5-34.5); MEAN CORPUSCULAR HGB CONC 32.7 g/dL (33.2-36.2); MEAN CORPUSCULAR VOLUME 91.2 fL (81-97); MEAN PLATELET VOLUME 8.8 fL (7.4-10.4); PLATELET COUNT 170 x10^3/uL (130-400); RED BLOOD COUNT 2.88 x10^6/uL (4.38-5.82); RED CELL DISTRIBUTION WIDTH 16.6 % (9.4-14.8)
[2019-10-20] MEDS: ALLOPURINOL 300 MG TABLET PO SCH (08:37)
[2019-10-20 09:13] LABS: BASOPHILS # (AUTO) 0.01 x10^3/uL (0-0.1); BASOPHILS % (AUTO) 0 % (0-1); EOSINOPHILS % (AUTO) 0 % (1-7); LYMPHOCYTES # (AUTO) 0.34 x10^3/uL (1-3.4); LYMPHOCYTES % (AUTO) 6 % (22-44); MD SCAN; MONOCYTES # (AUTO) 0.23 x10^3/uL (0.2-0.8); MONOCYTES % (AUTO) 4 % (2-9); NEUTROPHILS # (AUTO) 5.58 x10^3/uL (1.8-6.8); NEUTROPHILS % (AUTO) 91 % (42-75)
[2019-10-20] MEDS ORDERED: METHOTREXATE IT ONE (10:00)
[2019-10-20] MEDS ORDERED: METHOTREXATE/PF 2ML 12 MG in SODIUM CHLORIDE 0.9% 5.52 ML IT ONE (10:00)
[2019-10-20] MEDS: SODIUM CHLORIDE 0.9% 1,000 ML IV SCH ×2 (10:12→22:13)
[2019-10-20] MEDS: ONDANSETRON 8 MG in SODIUM CHLORIDE 0.9% 50 ML IVPB SCH (10:13)
[2019-10-20] MEDS ORDERED: VINCRISTINE IVPB SCH (11:00)
[2019-10-20] MEDS ORDERED: DOXORUBICIN IVPB SCH (11:00)
[2019-10-20] MEDS ORDERED: ETOPOSIDE IVPB SCH (11:00)
[2019-10-20] MEDS ORDERED: SODIUM CHLORIDE 0.9% IVPB SCH (11:00)
[2019-10-20] MEDS ORDERED: LIDOCAINE-MPF 1%, 5ML ONE (11:20)
[2019-10-20] MEDS ORDERED: ETOPOSIDE IVPB ONE ×2 (12:00)
[2019-10-20] MEDS ORDERED: VINCRISTINE IVPB ONE ×2 (12:00)
[2019-10-20] MEDS ORDERED: DOXORUBICIN IVPB ONE ×2 (12:00)
[2019-10-20] MEDS ORDERED: SODIUM CHLORIDE 0.9% IVPB ONE ×2 (12:00)
[2019-10-20 13:02] VITALS: BP 136/73
[2019-10-20 16:10] VITALS: BP 146/78
[2019-10-20 19:45] VITALS: BP 125/61
[2019-10-20] MEDS: ATORVASTATIN 80 MG TABLET PO SCH (20:30)
[2019-10-20] MEDS: SENNOSIDES 8.6 MG TABLET PO SCH (20:30)
[2019-10-21 01:20] VITALS: BP 128/68
[2019-10-21 06:14] LABS: ALANINE AMINOTRANSFERASE 97 U/L (12-78); ALBUMIN 2.5 g/dL (3.4-5.0); ANION GAP 8 mmol/L (5-15); CALCIUM 8.4 mg/dL (8.5-10.1); CHLORIDE 115 mmol/L (98-107); CREATININE 1.27 mg/dL (0.7-1.3)
[2019-10-21 06:19] LABS: ALKALINE PHOSPHATASE 332 U/L (45-117); BILIRUBIN,TOTAL 2.2 mg/dL (0.2-1.0); TOTAL PROTEIN 5.6 g/dL (6.4-8.2)
[2019-10-21 06:31] LABS: MEAN CORPUSCULAR HEMOGLOBIN 30.6 pg (27.5-34.5); MEAN CORPUSCULAR HGB CONC 33.7 g/dL (33.2-36.2); MEAN CORPUSCULAR VOLUME 90.6 fL (81-97); MEAN PLATELET VOLUME 9.5 fL (7.4-10.4); PLATELET COUNT 149 x10^3/uL (130-400); RED BLOOD COUNT 2.49 x10^6/uL (4.38-5.82); RED CELL DISTRIBUTION WIDTH 16.4 % (9.4-14.8)
[2019-10-21 06:49] LABS: BASOPHILS % (AUTO) 0 % (0-1); EOSINOPHILS % (AUTO) 0 % (1-7); LYMPHOCYTES # (AUTO) 0.27 x10^3/uL (1-3.4); LYMPHOCYTES % (AUTO) 4 % (22-44); MD SCAN; MONOCYTES % (AUTO) 2 % (2-9); NEUTROPHILS # (AUTO) 5.81 x10^3/uL (1.8-6.8); NEUTROPHILS % (AUTO) 94 % (42-75)
[2019-10-21 07:51] VITALS: BP 130/70
[2019-10-21] MEDS: AMLODIPINE 5 MG TABLET PO SCH (08:28)
[2019-10-21] MEDS: ALLOPURINOL 300 MG TABLET PO SCH (08:28)
[2019-10-21] MEDS: SODIUM CHLORIDE 0.9% 1,000 ML IV SCH ×2 (08:28→18:19)
[2019-10-21] MEDS: ONDANSETRON 8 MG in SODIUM CHLORIDE 0.9% 50 ML IVPB SCH (11:25)
[2019-10-21] MEDS ORDERED: VINCRISTINE IVPB ONE (13:00)
[2019-10-21] MEDS ORDERED: ETOPOSIDE IVPB ONE (13:00)
[2019-10-21] MEDS ORDERED: DOXORUBICIN IVPB ONE (13:00)
[2019-10-21] MEDS ORDERED: SODIUM CHLORIDE 0.9% IVPB ONE (13:00)
[2019-10-21 13:53] VITALS: BP 130/63
[2019-10-21 20:17] VITALS: BP 134/70
[2019-10-21] MEDS: ATORVASTATIN 80 MG TABLET PO SCH (20:27)
[2019-10-21] MEDS: SENNOSIDES 8.6 MG TABLET PO SCH (20:27)
[2019-10-22 00:50] VITALS: BP 139/67
[2019-10-22] MEDS: SODIUM CHLORIDE 0.9% 1,000 ML IV SCH ×3 (03:24→23:33)
[2019-10-22 06:55] LABS: MEAN CORPUSCULAR HEMOGLOBIN 30.3 pg (27.5-34.5); MEAN CORPUSCULAR HGB CONC 33.4 g/dL (33.2-36.2); MEAN CORPUSCULAR VOLUME 90.6 fL (81-97); MEAN PLATELET VOLUME 9.9 fL (7.4-10.4); PLATELET COUNT 142 x10^3/uL (130-400); RED BLOOD COUNT 2.42 x10^6/uL (4.38-5.82); RED CELL DISTRIBUTION WIDTH 16.8 % (9.4-14.8)
[2019-10-22 07:06] LABS: ALBUMIN 2.4 g/dL (3.4-5.0); ANION GAP 7 mmol/L (5-15); CALCIUM 8.3 mg/dL (8.5-10.1); CHLORIDE 114 mmol/L (98-107)
[2019-10-22 07:09] LABS: BASOPHILS % (AUTO) 0 % (0-1); EOSINOPHILS % (AUTO) 0 % (1-7); LYMPHOCYTES # (AUTO) 0.29 x10^3/uL (1-3.4); LYMPHOCYTES % (AUTO) 6 % (22-44); MD SCAN; MONOCYTES # (AUTO) 0.01 x10^3/uL (0.2-0.8); MONOCYTES % (AUTO) 0 % (2-9); NEUTROPHILS % (AUTO) 94 % (42-75)
[2019-10-22 07:14] LABS: ALANINE AMINOTRANSFERASE 102 U/L (12-78); ALKALINE PHOSPHATASE 293 U/L (45-117); BILIRUBIN,TOTAL 1.9 mg/dL (0.2-1.0); CREATININE 1.17 mg/dL (0.7-1.3); TOTAL PROTEIN 5.4 g/dL (6.4-8.2)
[2019-10-22 09:04] VITALS: BP 166/61
[2019-10-22] MEDS: AMLODIPINE 5 MG TABLET PO SCH (10:19)
[2019-10-22] MEDS: ALLOPURINOL 300 MG TABLET PO SCH (10:19)
[2019-10-22] MEDS: ONDANSETRON 8 MG in SODIUM CHLORIDE 0.9% 50 ML IVPB SCH (10:39)
[2019-10-22 13:00] VITALS: BP 157/70
[2019-10-22] MEDS ORDERED: ETOPOSIDE IVPB ONE (13:30)
[2019-10-22] MEDS ORDERED: VINCRISTINE IVPB ONE (13:30)
[2019-10-22] MEDS ORDERED: SODIUM CHLORIDE 0.9% IVPB ONE (13:30)
[2019-10-22] MEDS ORDERED: DOXORUBICIN IVPB ONE (13:30)
[2019-10-22 19:02] VITALS: BP 154/54
[2019-10-22] MEDS: SENNOSIDES 8.6 MG TABLET PO SCH (19:57)
[2019-10-22] MEDS: ATORVASTATIN 80 MG TABLET PO SCH (19:58)
[2019-10-23 02:19] VITALS: BP 143/70
[2019-10-23 03:40] LABS: MEAN CORPUSCULAR HGB CONC 33.2 g/dL (33.2-36.2); MEAN CORPUSCULAR VOLUME 90.4 fL (81-97); MEAN PLATELET VOLUME 9.4 fL (7.4-10.4); PLATELET COUNT 144 x10^3/uL (130-400); RED BLOOD COUNT 2.54 x10^6/uL (4.38-5.82); RED CELL DISTRIBUTION WIDTH 16.7 % (9.4-14.8)
[2019-10-23 03:47] LABS: ALANINE AMINOTRANSFERASE 104 U/L (12-78); ALBUMIN 2.4 g/dL (3.4-5.0); ANION GAP 7 mmol/L (5-15); CALCIUM 8.1 mg/dL (8.5-10.1); CHLORIDE 114 mmol/L (98-107); CREATININE 1.22 mg/dL (0.7-1.3)
[2019-10-23 03:49] LABS: ALKALINE PHOSPHATASE 283 U/L (45-117); BILIRUBIN,TOTAL 1.9 mg/dL (0.2-1.0); TOTAL PROTEIN 5.4 g/dL (6.4-8.2)
[2019-10-23 03:58] LABS: BASOPHILS # (AUTO) 0.01 x10^3/uL (0-0.1); BASOPHILS % (AUTO) 0 % (0-1); EOSINOPHILS % (AUTO) 0 % (1-7); LYMPHOCYTES # (AUTO) 0.24 x10^3/uL (1-3.4); LYMPHOCYTES % (AUTO) 5 % (22-44); MD SCAN; MONOCYTES # (AUTO) 0.01 x10^3/uL (0.2-0.8); MONOCYTES % (AUTO) 0 % (2-9); NEUTROPHILS # (AUTO) 4.59 x10^3/uL (1.8-6.8); NEUTROPHILS % (AUTO) 95 % (42-75)
[2019-10-23 08:05] VITALS: BP 152/69
[2019-10-23] MEDS: AMLODIPINE 5 MG TABLET PO SCH (08:25)
[2019-10-23] MEDS: ALLOPURINOL 300 MG TABLET PO SCH (08:25)
[2019-10-23] MEDS: SODIUM CHLORIDE 0.9% 1,000 ML IV SCH (09:36)
[2019-10-23] MEDS: ONDANSETRON 8 MG in SODIUM CHLORIDE 0.9% 50 ML IVPB SCH (12:17)
[2019-10-23] MEDS ORDERED: ETOPOSIDE IVPB ONE ×2 (14:30)
[2019-10-23] MEDS ORDERED: SODIUM CHLORIDE 0.9% IVPB ONE ×2 (14:30)
[2019-10-23] MEDS ORDERED: VINCRISTINE IVPB ONE ×2 (14:30)
[2019-10-23] MEDS ORDERED: DOXORUBICIN IVPB ONE ×2 (14:30)
[2019-10-23 14:52] VITALS: BP 160/64
[2019-10-23 19:37] VITALS: BP 140/71
[2019-10-23] MEDS: ATORVASTATIN 80 MG TABLET PO SCH (20:00)
[2019-10-23] MEDS: SENNOSIDES 8.6 MG TABLET PO SCH (20:00)
[2019-10-24] MEDS: SODIUM CHLORIDE 0.9% 1,000 ML IV SCH ×3 (00:07→20:13)
[2019-10-24 01:33] VITALS: BP 159/74
[2019-10-24 04:41] LABS: MEAN CORPUSCULAR HEMOGLOBIN 30.4 pg (27.5-34.5); MEAN CORPUSCULAR HGB CONC 33.9 g/dL (33.2-36.2); MEAN CORPUSCULAR VOLUME 89.7 fL (81-97); MEAN PLATELET VOLUME 9.8 fL (7.4-10.4); PLATELET COUNT 133 x10^3/uL (130-400); RED BLOOD COUNT 2.56 x10^6/uL (4.38-5.82); RED CELL DISTRIBUTION WIDTH 15.9 % (9.4-14.8)
[2019-10-24 04:54] LABS: ALANINE AMINOTRANSFERASE 102 U/L (12-78); ALBUMIN 2.4 g/dL (3.4-5.0); ANION GAP 9 mmol/L (5-15); CALCIUM 7.5 mg/dL (8.5-10.1); CHLORIDE 114 mmol/L (98-107); CREATININE 1.06 mg/dL (0.7-1.3)
[2019-10-24 04:56] LABS: ALKALINE PHOSPHATASE 248 U/L (45-117); BILIRUBIN,TOTAL 1.8 mg/dL (0.2-1.0); TOTAL PROTEIN 4.9 g/dL (6.4-8.2)
[2019-10-24 05:50] LABS: MD YES
[2019-10-24 05:54] LABS: BAND#(MANUAL) 0.04 x10^3/uL; BANDS%(MANUAL) 1 % (0-7); LYMPH#(MANUAL) 0.12 x10^3/uL (1-3.4); LYMPHS% (MANUAL) 3 % (22-44); MONOS#(MANUAL) 0.04 x10^3/uL (0.3-2.7); MONOS% (MANUAL) 1 % (2-9); SEG#(MANUAL) 3.71 x10^3/uL (1.8-6.8); SEGS% (MANUAL) 95 % (42-75)
[2019-10-24 05:55] LABS: ANISOCYTOSIS 1+; MICROCYTOSIS 1+
[2019-10-24 05:56] LABS: <PLATELET ESTIMATE> ADEQUATE; <PLT MORPHOLOGY> NORMAL PLT MORPH
[2019-10-24 05:59] LABS: OVALOCYTES 1+
[2019-10-24 07:36] VITALS: BP 156/71
[2019-10-24] MEDS: AMLODIPINE 5 MG TABLET PO SCH (10:07)
[2019-10-24] MEDS: ALLOPURINOL 300 MG TABLET PO SCH (10:07)
[2019-10-24] MEDS: ONDANSETRON 8 MG in SODIUM CHLORIDE 0.9% 50 ML IVPB SCH (10:07)
[2019-10-24 13:21] VITALS: BP 148/68
[2019-10-24] MEDS ORDERED: CYCLOPHOSPHAMIDE IV ONE (15:00)
[2019-10-24] MEDS ORDERED: SODIUM CHLORIDE 0.9% IV ONE (15:00)
[2019-10-24] MEDS ORDERED: POTASSIUM CHLORIDE 20 MEQ TAB.ER.PRT PO SCH (17:00)
[2019-10-24 19:06] VITALS: BP 138/66
[2019-10-24] MEDS: SENNOSIDES 8.6 MG TABLET PO SCH (20:13)
[2019-10-24] MEDS: ATORVASTATIN 80 MG TABLET PO SCH (20:13)
[2019-10-25] VITALS (7 sets, daily range): BP systolic 132–162; BP diastolic 61–77
[2019-10-25 04:54] LABS: MEAN CORPUSCULAR HEMOGLOBIN 29.9 pg (27.5-34.5); MEAN CORPUSCULAR HGB CONC 33.2 g/dL (33.2-36.2); MEAN CORPUSCULAR VOLUME 90.3 fL (81-97); MEAN PLATELET VOLUME 8.9 fL (7.4-10.4); PLATELET COUNT 109 x10^3/uL (130-400); RED BLOOD COUNT 2.46 x10^6/uL (4.38-5.82); RED CELL DISTRIBUTION WIDTH 15.7 % (9.4-14.8)
[2019-10-25 04:59] LABS: ALANINE AMINOTRANSFERASE 94 U/L (12-78); ALBUMIN 2.2 g/dL (3.4-5.0); ANION GAP 9 mmol/L (5-15); CALCIUM 7.6 mg/dL (8.5-10.1); CHLORIDE 113 mmol/L (98-107); CREATININE 1.02 mg/dL (0.7-1.3)
[2019-10-25 05:02] LABS: ALKALINE PHOSPHATASE 209 U/L (45-117); BILIRUBIN,TOTAL 1.8 mg/dL (0.2-1.0); TOTAL PROTEIN 4.4 g/dL (6.4-8.2)
[2019-10-25] MEDS: SODIUM CHLORIDE 0.9% 1,000 ML IV SCH (05:18)
[2019-10-25 05:33] LABS: MD YES
[2019-10-25 05:36] LABS: ANISOCYTOSIS 1+; BAND#(MANUAL) 0.23 x10^3/uL; BANDS%(MANUAL) 5 % (0-7); LYMPH#(MANUAL) 0.23 x10^3/uL (1-3.4); LYMPHS% (MANUAL) 5 % (22-44); OVALOCYTES 1+; SEG#(MANUAL) 4.14 x10^3/uL (1.8-6.8); SEGS% (MANUAL) 90 % (42-75); TEAR DROPS 1+
[2019-10-25 05:37] LABS: <PLATELET ESTIMATE> DECREASED; <PLT MORPHOLOGY> NORMAL PLT MORPH
[2019-10-25] MEDS ORDERED: ACETAMINOPHEN 325 MG TABLET PO ONE (08:00)
[2019-10-25] MEDS ORDERED: DIPHENHYDRAMINE 25 MG CAPSULE PO ONE (08:00)
[2019-10-25] MEDS: ALLOPURINOL 300 MG TABLET PO SCH (09:22)
[2019-10-25] MEDS: AMLODIPINE 5 MG TABLET PO SCH (09:22)
[2019-10-25] MEDS: POTASSIUM CHLORIDE 20 MEQ TAB.ER.PRT PO SCH ×2 (09:22→17:43)
[2019-10-25] MEDS ORDERED: FENTANYL PF 100 MCG/2ML ONE (15:42)
[2019-10-25] MEDS ORDERED: MIDAZOLAM 1 MG/ML, 5ML ONE (15:42)
[2019-10-25] MEDS ORDERED: NALOXONE 1 MG/ML, 2ML ONE (15:43)
[2019-10-25] MEDS ORDERED: FLUMAZENIL 0.1 MG/1 ML, 5ML ONE (15:43)
[2019-10-25] MEDS ORDERED: LIDOCAINE 1%, 10ML ONE (15:50)
[2019-10-25] MEDS ORDERED: LIDOCAINE 1%, 20ML ONE (15:51)
[2019-10-25] MEDS ORDERED: VANCOMYCIN PMX 1GM/200ML 200 ML IV ONE (16:00)
[2019-10-28] MEDS ORDERED: ROSU20TA2 PO (08:46)
[2019-10-28] MEDS ORDERED: ACYC-114 PO (08:46)
[2019-10-28] MEDS ORDERED: LEVO500T8 PO (08:46)
[2019-10-28] MEDS ORDERED: POTA20TA89 PO (08:46)
[2019-10-28] MEDS ORDERED: ALLO100T30 PO (08:46)
== END 2019-10-25 18:40 | disposition home or self-care (01) | DRG 846 ==
LOC: 4NW 11:02
PROVIDERS: ADMIT Internal Medicine Hematology & Oncology; ATTEND Internal Medicine Hematology & Oncology
PROC: 02HV33Z Insertion of Infusion Device into Superior Vena Cava, Percutaneous Approach (ICD-10-PCS; 2019-10-19)
PROC: B5181ZA Fluoroscopy of Superior Vena Cava using Low Osmolar Contrast, Guidance (ICD-10-PCS; 2019-10-19)
PROC: B548ZZA Ultrasonography of Superior Vena Cava, Guidance (ICD-10-PCS; 2019-10-19)
PROC: 009U3ZX Drainage of Spinal Canal, Percutaneous Approach, Diagnostic (ICD-10-PCS; 2019-10-20)
PROC: B01B1ZZ Fluoroscopy of Spinal Cord using Low Osmolar Contrast (ICD-10-PCS; 2019-10-20)
PROC: 30233N1 Transfusion of Nonautologous Red Blood Cells into Peripheral Vein, Percutaneous Approach (ICD-10-PCS; principal; 2019-10-25)
PROC: 0JH63XZ Insertion of Tunneled Vascular Access Device into Chest Subcutaneous Tissue and Fascia, Percutaneous Approach (ICD-10-PCS; 2019-10-25)
PROC: 02H633Z Insertion of Infusion Device into Right Atrium, Percutaneous Approach (ICD-10-PCS; 2019-10-25)
PROC: B5181ZA Fluoroscopy of Superior Vena Cava using Low Osmolar Contrast, Guidance (ICD-10-PCS; 2019-10-25)
PROC: B548ZZA Ultrasonography of Superior Vena Cava, Guidance (ICD-10-PCS; 2019-10-25)
DX: Z51.11 Encounter for antineoplastic chemotherapy (principal); E88.3 Tumor lysis syndrome; C82.80 Other types of follicular lymphoma, unspecified site; Z88.0 Allergy status to penicillin; D64.9 Anemia, unspecified; E87.6 Hypokalemia; N18.9 Chronic kidney disease, unspecified; Z95.2 Presence of prosthetic heart valve
CPT/HCPCS: 36415; 36561; 36573; 62328; 76937; 77001; 80053; 83615; 83735; 84550; 85025; 86850; 86900; 86923; 88108; 88184; 88185; 88377; 89051; 99156; 99157; C1894; G0378; J1100; J2250; J2405; J3010; J9000; J9070; J9181; J9250; C1751; C1788; J1200; J1642; J2310; J3490; J7030; J7040; J7050; J7512; J9312; J9370; P9040; Q0163

== ENCOUNTER 2019-10-30 14:55 | Inpatient (IN) | payer MEDICARE ==
[~2019-10-30] VITALS: Ht 182.9 cm; Wt 88.8 kg
[2019-10-30 04:42] VITALS: BP 118/52
[~2019-10-30 14:55] MED LIST changes: +ACYC-114 PO; +LEVO500T8 PO; +POTA20TA89 PO
[2019-10-30] MEDS ORDERED: SODIUM CHLORIDE 0.9% 1,000ML IVBOLUS ONE ×2 (15:30→18:30)
[2019-10-30] MEDS ORDERED: DILTIAZEM 5 MG/ML, 5ML IVPush ONE (15:30)
[2019-10-30] MEDS ORDERED: SODIUM CHLORIDE FLUSH 10ML SYR IVF ONE (15:30)
[2019-10-30] MEDS ORDERED: PLEASE ENTER HEIGHT AND WEIGHT MC SCH (15:30)
[2019-10-30] MEDS ORDERED: ACETAMINOPHEN 500 MG TABLET PO ONE (15:30)
[2019-10-30] MEDS ORDERED: ACETAMINOPHEN 500 MG TABLET ONE (15:47)
[2019-10-30] MEDS ORDERED: DILTIAZEM 5 MG/ML, 5ML ONE (15:47)
[2019-10-30] MEDS ORDERED: FURO20TA3 PO (15:47)
[2019-10-30 15:51] LABS: INTERNATIONAL NORMALIZED RATIO 1.54 (0.93-1.1); PROTHROMBIN TIME 16.4 Seconds (9.6-11.5)
[2019-10-30 15:53] LABS: ALANINE AMINOTRANSFERASE 28 U/L (12-78); ALBUMIN 1.5 g/dL (3.4-5.0); ANION GAP 13 mmol/L (5-15); CALCIUM 6.8 mg/dL (8.5-10.1); CHLORIDE 113 mmol/L (98-107); CREATININE 1.74 mg/dL (0.7-1.3)
--- NOTE | 2019-10-30 15:54 | NUR ---
PT HAS TWO LINE, MEDICATED PER EMAR, VSS AT THIS TIME. CLOSELY MONITORING.
[2019-10-30 15:57] LABS: ALKALINE PHOSPHATASE 100 U/L (45-117); BILIRUBIN,TOTAL 1.4 mg/dL (0.2-1.0); TROPONIN I 0.119 ng/mL (0.000-0.045)
--- NOTE | 2019-10-30 16:00 | NUR ---
Gil is a 37 /o male arriving from home via [facility] s/p being found down by brother. Pt apparently fell down muliple times. Pt had a port placed two weeks ago and had chemo this past wednesday. Pt reports that he did not feel great after his chemo. Pt is having loose stools and not been able to eat in 3 days. Pt covered in loose stools and cleaned. Pt is in afibb rvr and in resp distress and maintaining saturation. Pt connected to all monitors and call light in reach. Son at bedside.
[2019-10-30 16:02] LABS: MEAN CORPUSCULAR HEMOGLOBIN 30.3 pg (27.5-34.5); MEAN CORPUSCULAR HGB CONC 34.4 g/dL (33.2-36.2); RED BLOOD COUNT 2.52 x10^6/uL (4.38-5.82); RED CELL DISTRIBUTION WIDTH 14.2 % (9.4-14.8)
[2019-10-30 16:18] LABS: MEAN PLATELET VOLUME 10.3 fL (7.4-10.4)
[2019-10-30] MEDS ORDERED: NS + 40MEQ KCL 1,000 ML IV ONE (16:21)
[2019-10-30] MEDS ORDERED: DILTIAZEM 125 MG in SODIUM CHLORIDE 0.9% 100 ML IV SCH (16:24)
[2019-10-30] MEDS ORDERED: MEROPENEM 1 GM in SODIUM CHLORIDE 0.9% 100 ML IV ONE (16:30)
[2019-10-30] MEDS ORDERED: POTASSIUM CHLORIDE 20 MEQ PACKET PO ONE (16:30)
[2019-10-30] MEDS ORDERED: POTASSIUM CHLORIDE 40 MEQ in SODIUM CHLORIDE 0.9% 500 ML IV ONE ×2 (16:30→20:00)
[2019-10-30] MEDS ORDERED: MAGNESIUM SULFATE PMX 2GM/50ML 50 ML IV ONE ×2 (17:00→20:00)
[2019-10-30] MEDS ORDERED: ALBUMIN HUMAN 25% 100 ML IV ONE ×2 (17:00)
[2019-10-30] MEDS ORDERED: POTASSIUM CHLORIDE 20 MEQ PACKET ONE (17:43)
[2019-10-30] MEDS ORDERED: MAGNESIUM SULFATE PMX 2GM/50ML 50 ML ONE (17:43)
[2019-10-30 17:52] LABS: MICROSCOPIC INDICATED
[2019-10-30 17:54] LABS: CULTURE INDICATED? NO
--- NOTE | 2019-10-30 18:19 | NUR ---
Have discussed with md regarding 30cc/kg bolus for patient at this time md is concenred with fluid overload and does not want to proceed that way. Pt to recieve albumin at this time.
[2019-10-30 18:30] LABS: CLOSTRIDIUM DIFFICILE ANTIGEN POSITIVE; CLOSTRIDIUM DIFFICILE TOXIN POSITIVE (Negative)
[2019-10-30] MEDS ORDERED: metroNIDAZOLE 500 MG TABLET PO ONE (19:00)
[2019-10-30] MEDS ORDERED: metroNIDAZOLE 500 MG TABLET ONE (19:05)
--- NOTE | 2019-10-30 19:10 | NUR ---
PT ON SECIND VIAL OF ALBUMIN. PT TOLERATING INFUSIONS WELL. PT TO RECIEVE BLOOD ONCE ALBUMIN IS COMPLETED. PT ON CDIFF PRECUATIONS.
[2019-10-30] MEDS ORDERED: OXYcodone IR 5MG TABLET PO PRN (19:30)
[2019-10-30] MEDS ORDERED: hydrALAzine 20 MG/ML, 1ML IVPush PRN (19:30)
[2019-10-30] MEDS ORDERED: morphine SULFATE 10 MG/ML, 1ML IVPush PRN (19:30)
[2019-10-30] MEDS ORDERED: LACTATED RINGERS 1,000 ML IV SCH (19:30)
[2019-10-30] MEDS ORDERED: ONDANSETRON 2MG/ML, 2ML IVPush PRN (19:30)
[2019-10-30] MEDS ORDERED: ONDANSETRON ODT 4 MG PO PRN (19:30)
[2019-10-30] MEDS ORDERED: PROMETHAZINE 25 MG/ML, 1ML IM PRN (19:30)
[2019-10-30] MEDS ORDERED: DIGOXIN 0.25 MG/ML, 2ML IVPush ONE (20:00)
[2019-10-30 20:13] LABS: FREE T4 (FREE THYROXINE) 1.36 ng/dL (0.76-1.46)
[2019-10-30 21:10] LABS: RAPID INFLUENZA A Negative (Negative); RAPID INFLUENZA B Negative (Negative)
[2019-10-30] MEDS: VANCOMYCIN 50 MG/ML ORAL SUSP PO SCH (21:21)
[2019-10-30] MEDS: ACYCLOVIR 400 MG TABLET PO SCH (21:22)
[2019-10-30] MEDS: ATORVASTATIN 80 MG TABLET PO SCH (21:22)
[2019-10-30] MEDS ORDERED: DAPTOMYCIN 350 MG in SODIUM CHLORIDE 0.9% 100 ML IV SCH (21:30)
[2019-10-30 23:58] LABS: TROPONIN I 0.498 ng/mL (0.000-0.045)
[2019-10-31] MEDS: MEROPENEM 500 MG in SODIUM CHLORIDE 0.9% 100 ML IV SCH ×4 (00:49→23:44)
[2019-10-31 01:35] VITALS: BP_SYST 102; BP_SYST 98; BP_DIAS 52; BP_DIAS 56
[2019-10-31 01:45] VITALS: BP 98/56
[2019-10-31] MEDS: VANCOMYCIN 50 MG/ML ORAL SUSP PO SCH ×4 (02:50→20:32)
[2019-10-31 03:08] LABS: ALANINE AMINOTRANSFERASE 26 U/L (12-78); ALBUMIN 2.2 g/dL (3.4-5.0); ANION GAP 10 mmol/L (5-15); CALCIUM 7.2 mg/dL (8.5-10.1); CHLORIDE 117 mmol/L (98-107); CREATININE 1.68 mg/dL (0.7-1.3)
[2019-10-31 03:09] LABS: CHOLESTEROL, TOTAL < 50 mg/dL (140-239); MEAN CORPUSCULAR HEMOGLOBIN 30.1 pg (27.5-34.5); MEAN CORPUSCULAR HGB CONC 34.1 g/dL (33.2-36.2); MEAN CORPUSCULAR VOLUME 88.1 fL (81-97); RED BLOOD COUNT 2.57 x10^6/uL (4.38-5.82)
[2019-10-31 03:13] LABS: ALKALINE PHOSPHATASE 87 U/L (45-117); BILIRUBIN,TOTAL 1.9 mg/dL (0.2-1.0); CHOL/HDL RATIO 4.5; HDL CHOL % 0 % (26-37); HDL CHOLESTEROL (DIRECT) 11 mg/dL (40-60); LDL CHOLESTEROL,CALCULATED 24 mg/dL (54-169); LDL/HDL RATIO 2.2 (0.5-3.0); TOTAL PROTEIN 4.7 g/dL (6.4-8.2); TRIGLYCERIDES 74 mg/dL (50-200); VLDL CHOLESTEROL 15 mg/dL (0-25)
[2019-10-31 03:42] VITALS: BP 113/53
[2019-10-31 04:08] LABS: MEAN PLATELET VOLUME 10.1 fL (7.4-10.4)
[2019-10-31 04:10] LABS: MD YES; PLATELET COUNT 14 x10^3/uL (130-400)
[2019-10-31 04:17] LABS: ANISOCYTOSIS 1+; MONOS#(MANUAL) 0.01 x10^3/uL (0.3-2.7)
[2019-10-31 04:23] LABS: EOS% (MANUAL) 2 % (1-7); LYMPH#(MANUAL) 0.07 x10^3/uL (1-3.4); LYMPHS% (MANUAL) 65 % (22-44); MONOS% (MANUAL) 11 % (2-9); SEG#(MANUAL) 0.02 x10^3/uL (1.8-6.8); SEGS% (MANUAL) 22 % (42-75)
[2019-10-31 04:25] LABS: <PLATELET ESTIMATE> DECREASED; LARGE PLATELETS 1+
[2019-10-31 05:03] VITALS: BP 88/64
[2019-10-31] MEDS: ACYCLOVIR 400 MG TABLET PO SCH ×5 (06:00→20:32)
[2019-10-31] MEDS ORDERED: PHARMACOKINETIC MONITORING MC PRN (07:00)
[2019-10-31] MEDS ORDERED: POTASSIUM CHLORIDE 40 MEQ in SODIUM CHLORIDE 0.9% 500 ML IV ONE (07:00)
[2019-10-31] MEDS ORDERED: VANCOMYCIN PER PHARMACY MC PRN (07:00)
[2019-10-31] MEDS ORDERED: VANCOMYCIN 1,700 MG in SODIUM CHLORIDE 0.9% 250 ML IV ONE (07:30)
[2019-10-31] MEDS ORDERED: FENTANYL PF 100 MCG/2ML IVPush PRN (08:30)
[2019-10-31] MEDS ORDERED: ETOMIDATE 20 MG/10 ML IVPush ONE (08:30)
[2019-10-31] MEDS ORDERED: PHARMACY MAY ADJ FOR RENAL FX MC SCH (08:30)
[2019-10-31] MEDS ORDERED: MIDAZOLAM 1 MG/ML, 5ML IVPush ONE (08:30)
[2019-10-31] MEDS ORDERED: LIDOCAINE-MPF 1%, 2ML ENDO PRN (08:30)
[2019-10-31] MEDS ORDERED: MIDAZOLAM 1 MG/ML, 5ML ONE (09:00)
[2019-10-31] MEDS ORDERED: PROPOFOL 100 ML IV ONE (09:00)
[2019-10-31] MEDS ORDERED: AMLODIPINE 5 MG TABLET PO SCH (09:00)
[2019-10-31] MEDS ORDERED: ETOMIDATE 20 MG/10 ML ONE (09:00)
[2019-10-31] MEDS: ALLOPURINOL 300 MG TABLET PO SCH (09:20)
[2019-10-31] MEDS: DIGOXIN 0.25 MG/ML, 2ML IVPush SCH (09:30)
[2019-10-31] MEDS: PANTOPRAZOLE 40 MG IV IV SCH (09:57)
[2019-10-31] MEDS: ACETAMINOPHEN 325 MG TABLET PO PRN (11:11)
[2019-10-31] MEDS: TBO-FILGRASTIM 480 MCG/0.8 ML SQ SCH (11:15)
[2019-10-31] MEDS: NOREPINEPHRINE 8 MG in SODIUM CHLORIDE 0.9% 242 ML IV PRN (12:32)
[2019-10-31] MEDS: METRONIDAZOLE PMX 500MG/100ML 100 ML IV SCH ×2 (14:27→20:32)
[2019-10-31] MEDS: PROPOFOL 100 ML IV PRN (17:09)
[2019-10-31] MEDS: ATORVASTATIN 80 MG TABLET PO SCH (20:32)
[2019-11-01] MEDS: NOREPINEPHRINE 8 MG in SODIUM CHLORIDE 0.9% 242 ML IV PRN ×6 (00:46→21:26)
[2019-11-01] MEDS: VANCOMYCIN 50 MG/ML ORAL SUSP PO SCH ×4 (01:47→19:56)
[2019-11-01] MEDS: ACETAMINOPHEN 325 MG TABLET PO PRN (02:07)
[2019-11-01] MEDS ORDERED: SODIUM BICARB 8.4%, 50ML SYRINGE ONE (03:19)
[2019-11-01] MEDS: PROPOFOL 100 ML IV PRN ×3 (03:28→16:44)
[2019-11-01] MEDS: METRONIDAZOLE PMX 500MG/100ML 100 ML IV SCH ×4 (03:28→19:56)
[2019-11-01] MEDS ORDERED: SODIUM BICARB 8.4%, 50ML SYRINGE IVPush ONE (03:30)
[2019-11-01] MEDS: VASOPRESSIN 20 UNIT in SODIUM CHLORIDE 0.9% 99 ML IV PRN ×3 (03:40→23:13)
[2019-11-01 05:16] LABS: ANION GAP 13 mmol/L (5-15); CALCIUM 6.6 mg/dL (8.5-10.1); CHLORIDE 120 mmol/L (98-107); CREATININE 2.29 mg/dL (0.7-1.3)
[2019-11-01 05:45] LABS: MEAN CORPUSCULAR HEMOGLOBIN 30.6 pg (27.5-34.5); MEAN CORPUSCULAR VOLUME 87.4 fL (81-97); MEAN PLATELET VOLUME 9.9 fL (7.4-10.4); RED BLOOD COUNT 2.84 x10^6/uL (4.38-5.82); RED CELL DISTRIBUTION WIDTH 15.5 % (9.4-14.8)
[2019-11-01 05:47] LABS: PLATELET COUNT 16 x10^3/uL (130-400)
[2019-11-01 05:56] LABS: MD YES
[2019-11-01 06:08] LABS: <PLATELET ESTIMATE> DECREASED; ANISOCYTOSIS 1+; BAND#(MANUAL) 0.03 x10^3/uL; BANDS%(MANUAL) 6 % (0-7); EOS#(MANUAL) 0.07 x10^3/uL (0.0-0.4); EOS% (MANUAL) 13 % (1-7); LYMPH#(MANUAL) 0.04 x10^3/uL (1-3.4); LYMPHS% (MANUAL) 8 % (22-44); METAMYELOCYTES# (MANUAL) 0.02 x10^3/uL (0-0); METAMYELOCYTES% (MANUAL) 3 % (0-1); MONOS#(MANUAL) 0.11 x10^3/uL (0.3-2.7); MONOS% (MANUAL) 21 % (2-9); MYELOCYTES# (MANUAL) 0.01 x10^3/uL (0-0); MYELOCYTES% (MANUAL) 1 % (0-0); SEG#(MANUAL) 0.24 x10^3/uL (1.8-6.8); SEGS% (MANUAL) 48 % (42-75)
[2019-11-01] MEDS: ACYCLOVIR 400 MG TABLET PO SCH ×5 (06:08→23:12)
[2019-11-01 06:09] LABS: <PLT MORPHOLOGY> NORMAL PLT MORPH
[2019-11-01 06:10] LABS: ECHINOCYTES 1+
[2019-11-01] MEDS: MEROPENEM 500 MG in SODIUM CHLORIDE 0.9% 100 ML IV SCH ×3 (08:11→23:13)
[2019-11-01] MEDS ORDERED: FILTER 0.22 MICRON IV PRN (08:30)
[2019-11-01] MEDS ORDERED: CALCIUM CHLORIDE 13.6 MEQ in SODIUM CHLORIDE 0.9% 100 ML IV ONE (08:30)
[2019-11-01] MEDS ORDERED: AMIODARONE 150 MG in DEXTROSE 5% 100 ML IV ONE (08:30)
[2019-11-01] MEDS: AMIODARONE 450 MG in DEXTROSE 5% 241 ML IV PRN ×2 (08:58→16:25)
[2019-11-01] MEDS: POTASSIUM CHLORIDE 10% 40 MEQ/30 ML UDC PO SCH ×2 (08:58→23:12)
[2019-11-01] MEDS: ALLOPURINOL 300 MG TABLET PO SCH (08:59)
[2019-11-01] MEDS: PANTOPRAZOLE 40 MG IV IV SCH (08:59)
[2019-11-01] MEDS: DIGOXIN 0.25 MG/ML, 2ML IVPush SCH (09:00)
[2019-11-01] MEDS: TBO-FILGRASTIM 480 MCG/0.8 ML SQ SCH (11:07)
[2019-11-01] MEDS ORDERED: VANCOMYCIN 1,700 MG in SODIUM CHLORIDE 0.9% 250 ML IV SCH (21:00)
[2019-11-01] MEDS: ATORVASTATIN 80 MG TABLET PO SCH (23:12)
[2019-11-02] MEDS: NOREPINEPHRINE 8 MG in SODIUM CHLORIDE 0.9% 242 ML IV PRN ×5 (01:18→17:11)
[2019-11-02] MEDS: VANCOMYCIN 50 MG/ML ORAL SUSP PO SCH ×3 (02:25→12:45)
[2019-11-02] MEDS: METRONIDAZOLE PMX 500MG/100ML 100 ML IV SCH ×3 (02:26→14:01)
[2019-11-02] MEDS: AMIODARONE 450 MG in DEXTROSE 5% 241 ML IV PRN (04:58)
[2019-11-02 05:37] LABS: ANION GAP 15 mmol/L (5-15); CALCIUM 6.9 mg/dL (8.5-10.1); CHLORIDE 120 mmol/L (98-107)
[2019-11-02 05:41] LABS: CREATININE 3.76 mg/dL (0.7-1.3)
[2019-11-02 05:52] LABS: MEAN CORPUSCULAR HEMOGLOBIN 30.8 pg (27.5-34.5); MEAN CORPUSCULAR HGB CONC 34.6 g/dL (33.2-36.2); MEAN CORPUSCULAR VOLUME 89.1 fL (81-97); RED BLOOD COUNT 3.12 x10^6/uL (4.38-5.82)
[2019-11-02] MEDS: ACYCLOVIR 400 MG TABLET PO SCH ×4 (06:04→16:54)
[2019-11-02 06:14] LABS: MD YES
[2019-11-02 06:16] LABS: MEAN PLATELET VOLUME 8.6 fL (7.4-10.4)
[2019-11-02 06:29] LABS: PLATELET COUNT 6 x10^3/uL (130-400)
[2019-11-02 07:06] LABS: BAND#(MANUAL) 0.05 x10^3/uL; BANDS%(MANUAL) 3 % (0-7); LYMPH#(MANUAL) 0.11 x10^3/uL (1-3.4); LYMPHS% (MANUAL) 7 % (22-44); METAMYELOCYTES# (MANUAL) 0.02 x10^3/uL (0-0); METAMYELOCYTES% (MANUAL) 1 % (0-1); MONOS#(MANUAL) 0.11 x10^3/uL (0.3-2.7); MONOS% (MANUAL) 7 % (2-9); NRBC % (MANUAL) 2 % (0-1); REACTIVE LYMPHS # (MANUAL) 0.02 x10^3/uL (0-0); REACTIVE LYMPHS % (MANUAL) 1 % (0-0); SEGS% (MANUAL) 81 % (42-75)
[2019-11-02 07:08] LABS: <PLATELET ESTIMATE> DECREASED; <PLT MORPHOLOGY> NORMAL PLT MORPH; ANISOCYTOSIS 1+
[2019-11-02 07:09] LABS: ECHINOCYTES 1+
[2019-11-02 07:12] LABS: PMNS WITH VACUOLES 1+
[2019-11-02] MEDS ORDERED: MIDAZOLAM HCL 50 MG in SODIUM CHLORIDE 0.9% 40 ML IV PRN (07:30)
[2019-11-02] MEDS: TBO-FILGRASTIM 480 MCG/0.8 ML SQ SCH (09:00)
[2019-11-02] MEDS: MEROPENEM 500 MG in SODIUM CHLORIDE 0.9% 100 ML IV SCH (09:29)
[2019-11-02] MEDS: ALLOPURINOL 300 MG TABLET PO SCH (09:34)
[2019-11-02] MEDS: DIGOXIN 0.25 MG/ML, 2ML IVPush SCH (09:35)
[2019-11-02] MEDS: PANTOPRAZOLE 40 MG IV IV SCH (09:35)
[2019-11-02] MEDS: VASOPRESSIN 20 UNIT in SODIUM CHLORIDE 0.9% 99 ML IV PRN (12:45)
[2019-11-02] MEDS ORDERED: DEXTROSE 50%, 50ML SYRINGE IVPush ONE ×2 (16:30→17:00)
[2019-11-02] MEDS ORDERED: morphine SULFATE 10 MG/ML, 1ML IV ONE (19:30)
[2019-11-02] MEDS ORDERED: ATROPINE OPHTH SOLN 1%, 2ML PO PRN (19:30)
[2019-11-02] MEDS ORDERED: LORazepam 2 MG/ML, 1ML IV ONE ×2 (19:30)
[2019-11-02] MEDS ORDERED: LORazepam 2 MG/ML, 1ML IV PRN (19:30)
[2019-11-02] MEDS ORDERED: MEROPENEM 500 MG in SODIUM CHLORIDE 0.9% 100 ML IV SCH (21:00)
[2019-11-03] MEDS ORDERED: ALLOPURINOL 100 MG TABLET PO SCH (09:00)
== END 2019-11-02 23:28 | disposition expired | DRG 871 ==
LOC: ED 17:28 → EDIP 17:29 → ED 17:54 → CCU 20:02
PROVIDERS: ADMIT Internal Medicine; ATTEND Internal Medicine
PROC: 30233N1 Transfusion of Nonautologous Red Blood Cells into Peripheral Vein, Percutaneous Approach (ICD-10-PCS; principal; 2019-10-31)
PROC: 02HV33Z Insertion of Infusion Device into Superior Vena Cava, Percutaneous Approach (ICD-10-PCS; 2019-10-31)
PROC: B548ZZA Ultrasonography of Superior Vena Cava, Guidance (ICD-10-PCS; 2019-10-31)
PROC: 0BH17EZ Insertion of Endotracheal Airway into Trachea, Via Natural or Artificial Opening (ICD-10-PCS; 2019-10-31)
PROC: 5A1945Z Respiratory Ventilation, 24-96 Consecutive Hours (ICD-10-PCS; 2019-10-31)
DX: A41.89 Other specified sepsis (principal); J96.01 Acute respiratory failure with hypoxia; R65.21 Severe sepsis with septic shock; I21.4 Non-ST elevation (NSTEMI) myocardial infarction; N17.0 Acute kidney failure with tubular necrosis; E43 Unspecified severe protein-calorie malnutrition; A04.72 Enterocolitis due to Clostridium difficile, not specified as recurrent; C82.90 Follicular lymphoma, unspecified, unspecified site; D61.818 Other pancytopenia; E87.2 Acidosis; Z99.11 Dependence on respirator [ventilator] status; I48.0 Paroxysmal atrial fibrillation; E83.42 Hypomagnesemia; E87.6 Hypokalemia; I11.0 Hypertensive heart disease with heart failure; I25.10 Atherosclerotic heart disease of native coronary artery without angina pectoris; I35.0 Nonrheumatic aortic (valve) stenosis; I50.9 Heart failure, unspecified; K21.9 Gastro-esophageal reflux disease without esophagitis; M10.9 Gout, unspecified; R50.81 Fever presenting with conditions classified elsewhere; T45.1X5A Adverse effect of antineoplastic and immunosuppressive drugs, initial encounter; Z66 Do not resuscitate; Z79.01 Long term (current) use of anticoagulants; Z86.73 Personal history of transient ischemic attack (TIA), and cerebral infarction without residual deficits; Z87.891 Personal history of nicotine dependence; Z95.2 Presence of prosthetic heart valve; Z95.5 Presence of coronary angioplasty implant and graft; Y92.89 Other specified places as the place of occurrence of the external cause; Z88.0 Allergy status to penicillin; Z68.26 Body mass index [BMI] 26.0-26.9, adult; Z79.899 Other long term (current) drug therapy; Z51.5 Encounter for palliative care
CPT/HCPCS: 36415; 36573; 36591; 36600; 71045; 80048; 80053; 80061; 81001; 82330; 82803; 82805; 82962; 83036; 83605; 83735; 84145; 84439; 84443; 84478; 84484; 85025; 85027; 85610; 86850; 86900; 86923; 87040; 87070; 87081; 87205; 87324; 87400; 89055; 93005; 93308; 93321; 93325; 94002; 94003; 96361; 96365; 96375; 99292; G0378; J0878; J2185; J2250; J2704; J3370; J3480; J7060; P9047; C1751; C9113; J0282; J1160; J1447; J2060; J2270; J3475; J7030; J7040; J7050; J7120; P9040